=== PATIENT | female | born 1965 | race Caucasian/White ===

== ENCOUNTER 2023-11-04 14:22 | Outpatient (CLI) | payer BC, SELFPAY ==
[2023-11-04 14:47] LABS: Basophils # 0.1 K/mm3 (0-0.2); Basophils % 0.9 % (0.1-2.0); Eosinophils # 0.1 K/mm3 (0.0-0.4); Hematocrit 48.5 % (37.0-47.0); Hemoglobin 15.7 g/dL (12.2-16.2); Lymphocytes # 1.8 K/mm3 (0.7-4.5); Mean Corpuscular HGB Conc 32.5 g/dL (31.8-35.4); Mean Corpuscular Hemoglobin 29.6 pg (27.0-31.2); Mean Corpuscular Volume 91.2 fl (81-99); Mean Platelet Volume 9.5 fl (7.4-10.4); Monocytes # 0.4 K/mm3 (0.1-1.0); Monocytes % 5.6 % (1.7-9.3); Neutrophils # 5.1 K/mm3 (1.8-7.8); Neutrophils % 68.5 % (37.0-80.0); Platelet Count 243 K/mm3 (142-424); Red Blood Count 5.31 M/mm3 (4.20-5.40); Red Cell Distribution Width 14.3 % (11.5-17.5); White Blood Count 7.4 K/mm3 (4.8-10.8)
[2023-11-04 15:10] LABS: Alanine Aminotransferase 21 U/L (12-78); Albumin Level 4.4 g/dl (3.5-5.0); Albumin/Globulin Ratio 1.6 (1.1-1.8); Alkaline Phosphatase 82 U/L (38-126); Anion Gap 13.3 mEq/L (5-15); Aspartate Amino Transferase 25 U/L (14-36); Blood Urea Nitrogen 15 mg/dl (7-17); Calcium 9.8 mg/dl (8.4-10.2); Carbon Dioxide 30 mmol/L (22.0-30.0); Chloride 100 mmol/L (98-107); Chol/HDL Ratio 3.8 (1-3.5); Cholesterol 222 mg/dl (140-200); Estimated Glomerular Filt Rate 104 ml/min (>60); GFR (African American) 126 ML/MIN (>60); Globulin 2.8 g/dL (1.3-3.2); Glucose 89 mg/dl (74-100); HDL Cholesterol 59 mg/dl (40-60); Magnesium 1.7 mg/dl (1.6-2.3); Potassium 4.3 mmoL/L (3.5-5.1); Sodium 139 mmol/L (136-145); Total Protein,Serum 7.2 g/dl (6.3-8.2); Triglycerides 148 mg/dl (30-150); VLDL Cholesterol 30 mg/dL (0-40)
[2023-11-04 15:23] LABS: Direct LDL Cholesterol 121.81 mg/dL (100-129)
[2023-11-04 15:25] LABS: 25-OH Vitamin D, Total 20.1 ng/mL (30-100)
[2023-11-04 16:02] LABS: Vitamin B12 307 pg/mL (239-931)
[2023-11-04 16:38] LABS: Ferritin 116 ng/ml (11.1-264)
[2023-11-04 16:49] LABS: Thyroid Stimulating Hormone 0.54 uIU/mL (0.465-4.68)
== END 2023-11-04 23:59 | disposition home or self-care (01) ==
LOC: LAB.DROPOF 14:23
PROVIDERS: PCP Nurse Practitioner Family; Visit Provider Nurse Practitioner Family
DX: G43.909 Migraine, unspecified, not intractable, without status migrainosus (principal); I10 Essential (primary) hypertension; R31.9 Hematuria, unspecified; E55.9 Vitamin D deficiency, unspecified; Z79.899 Other long term (current) drug therapy
CPT/HCPCS: 80053; 80061; 82043; 82306; 82607; 82728; 83735; 84443; 85025

== ENCOUNTER 2024-01-13 09:24 | Outpatient (CLI) | payer BC, SELFPAY ==
--- NOTE | 2024-01-13 09:25 | MM_ITS ---
PROCEDURE INFORMATION: Exam: MG Bilateral Screening 3D Mammography Exam date and time: 01/13/2024 9:22 AM Age: 58 years old Clinical indication: Screening examination TECHNIQUE: Imaging protocol: Bilateral Screening tomosynthesis and 2D mammography including computer-aided detection (CAD) when performed. COMPARISON: 1. MG NOHEMY SCRN MAMMO W/CAD BILAT 06/19/2022 4:25 PM 2. MG NOHEMY SCRN MAMMO W/CAD BILAT 01/06/2021 4:30 PM FINDINGS: MAMMOGRAPHY: Breast composition: There are scattered areas of fibroglandular density. Mass: None. Architectural distortion: None. Calcifications: No suspicious calcifications. Asymmetric density: None. Skin thickening: None. Axillary adenopathy: None. IMPRESSION: No mammographic evidence of malignancy. Annual screening is recommended unless otherwise clinically indicated. ASSESSMENT: BI-RADS Category 1: Negative
== END 2024-01-13 23:59 | disposition home or self-care (01) ==
LOC: RAD 09:25
PROVIDERS: PCP Nurse Practitioner Family; Visit Provider Nurse Practitioner Family
DX: Z12.39 Encounter for other screening for malignant neoplasm of breast (principal)
CPT/HCPCS: 77063; 77067

== ENCOUNTER 2024-05-12 08:59 | Outpatient (CLI) | payer BC, SELFPAY ==
--- NOTE | 2024-05-12 09:03 | XR_ITS ---
FINAL REPORT CLINICAL HISTORY: Left Hip Pain COMPARISON: None FINDINGS: LEFT HIP: Two views of the left hip, with an AP view of the pelvis, demonstrate no acute fracture or dislocation. The joint spaces appear normal. The visualized bony structures are well aligned. No soft tissue abnormality is seen. IMPRESSION: No acute bony abnormality. Reviewed, Interpreted and Dictated by Cl Pittman MD Transcribed by Carolina Cornell Authenticated and [facility]
--- NOTE | 2024-05-12 09:03 | XR_ITS ---
FINAL REPORT CLINICAL HISTORY: Left Hip Pain COMPARISON: None FINDINGS: Two views of the left knee were obtained. There is no acute fracture or dislocation. The joint spaces are intact. There is no soft tissue abnormality. IMPRESSION: No acute bony abnormality. Reviewed, Interpreted and Dictated by Cl Pittman MD Transcribed by Carolina Cornell Authenticated and [facility]
== END 2024-05-12 23:59 | disposition home or self-care (01) ==
LOC: RAD 09:01
PROVIDERS: PCP Internal Medicine; Visit Provider Internal Medicine
DX: M25.552 Pain in left hip (principal); M25.562 Pain in left knee
CPT/HCPCS: 73502; 73560

== ENCOUNTER 2024-05-26 16:17 | Outpatient (CLI) | payer BC, SELFPAY ==
--- NOTE | 2024-05-26 16:18 | MR_ITS ---
PROCEDURE INFORMATION: Exam: MR Left Lower Extremity Joint Without Contrast; Hip Exam date and time: 05/26/2024 4:35 PM Age: 58 years old Clinical indication: Pain; Hip; Left; Additional info: Left hip pain TECHNIQUE: Imaging protocol: Magnetic resonance imaging of the left lower extremity joint without contrast. Exam focused on the hip. COMPARISON: CR XR HIP LT 2-3V W/PELVIS 05/12/2024 9:05 AM FINDINGS: Bones/joints: Normal bone marrow signal. No worrisome osseous lesion. No acute fracture. Labrum: Moderate chronic degeneration of the anterior superior labrum, without distinct labral tear. Mild degenerative fraying and fissuring of acetabular and femoral head cartilage. Bursae: Very minimal increased signal over the greater trochanter bursal region, without distinct fluid to suggest bursitis. TENDONS: Tendons of iliopsoas group: Unremarkable. No evidence of tear. Tendons of medial compartment of thigh: Unremarkable. No evidence of tear. Tendons of lateral rotators of hip: Unremarkable. No evidence of tear. Tendons of gluteal group: Unremarkable. No evidence of tear. Soft tissues: Unremarkable. Bladder: Imaged lower bowel and bladder are unremarkable. Small nabothian cysts of the cervix. IMPRESSION: 1. No acute osseous abnormality. 2. Jpyg-rv-ttebujso degenerative changes in the left hip including chronic degeneration of the left acetabular labrum and cartilage fissuring of the hip joint.
--- NOTE | 2024-05-26 16:18 | MR_ITS ---
PROCEDURE INFORMATION: Exam: MR Left Lower Extremity Joint Without Contrast, Knee Exam date and time: 05/26/2024 5:02 PM Age: 58 years old Clinical indication: Pain; Knee; Left; Additional info: Left hip/knee pain TECHNIQUE: Imaging protocol: Magnetic resonance imaging of the left lower extremity joint without contrast. Exam focused on the knee. COMPARISON: FINDINGS: Bones/joints: Normal bone marrow signal. No appreciable fracture. Mild cartilage fraying and fissuring in the medial aspect of the lateral compartment weight-bearing zone. Mild cartilage signal change and focal deep delamination measuring approximately 7 mm transverse in the lateral patellar midpole. No appreciable subchondral edema. Medial meniscus: Medial meniscus is unremarkable. Lateral meniscus: Horizontal tear of the lateral meniscus anterior horn, spanning anterior body, posterior body, to the posterior body/horn junction. Associated gjbxb-ag-nqqdiiaz sized parameniscal cyst in the lateral meniscal gutter measuring approximately 2.3 x 0.6 x 2.0 cm(AP x CC x TV). Focal tlot-cs-hzfxovdc inflammatory change surrounding and overlying the lateral meniscal gutter, including superficial to the distal IT band. Anterior cruciate ligament: ACL is unremarkable. Posterior cruciate ligament: PCL is unremarkable. Medial capsule and supporting structures: MCL is unremarkable. Lateral capsule and supporting structures: LCL is unremarkable. Extensor mechanism of knee: Extensor mechanism is unremarkable. Soft tissues: Unremarkable. IMPRESSION: 1. Horizontal tear of the lateral meniscus anterior horn, spanning anterior body, posterior body, to the posterior body/horn junction. Associated lbodu-xx-trfaygyp sized parameniscal cyst in the lateral meniscal gutter measuring approximately 2.3 x 0.6 x 2.0 cm(AP x CC x TV). 2. Focal qxhr-nv-miyrddnx inflammatory change surrounding and overlying the lateral meniscal gutter, including superficial to the distal IT band. 3. Mild cartilage signal change and focal deep delamination measuring approximately 7 mm transverse in the lateral patellar midpole. No appreciable subchondral edema.
== END 2024-05-26 23:59 | disposition home or self-care (01) ==
LOC: RAD 16:18
PROVIDERS: PCP Internal Medicine; Visit Provider Internal Medicine
DX: M25.552 Pain in left hip (principal); M25.562 Pain in left knee
CPT/HCPCS: 73721

== ENCOUNTER 2024-09-01 13:03 | Outpatient (CLI) | payer BC, SELFPAY ==
[2024-09-01 13:16] VITALS: BMI 37.3
--- NOTE | 2024-09-01 13:29 | ECG_ITS ---
APPROVED REPORT Exam: Resting ECG HR:101 bpm ECG Measurements Heart Rate 101 AXES MO 180 P 70 QRSd 84 QRS 17 QT 331 T 79 QTc 389 Conclusion SINUS TACHYCARDIA NONSPECIFIC T-WAVE ABNORMALITY ABNORMAL RHYTHM ECG UNCONFIRMED REPORT Electronically signed by : Kyle Smith MD 09/07/2024 08:56:03
[2024-09-01 13:39] LABS: Basophils # 0.1 K/mm3 (0-0.2); Basophils % 0.8 % (0.1-2.0); Eosinophils # 0.2 K/mm3 (0.0-0.4); Hematocrit 45.8 % (37.0-47.0); Hemoglobin 15.4 g/dL (12.2-16.2); Lymphocytes # 2.4 K/mm3 (0.7-4.5); Lymphocytes % 23.2 % (10-50); Mean Corpuscular HGB Conc 33.6 g/dL (31.8-35.4); Mean Corpuscular Hemoglobin 29.5 pg (27.0-31.2); Mean Corpuscular Volume 87.7 fl (81-99); Mean Platelet Volume 11.1 fl (7.4-10.4); Monocytes # 0.8 K/mm3 (0.1-1.0); Monocytes % 7.4 % (1.7-9.3); Neutrophils % 66.4 % (37.0-80.0); Platelet Count 253 K/mm3 (142-424); Red Blood Count 5.22 M/mm3 (4.20-5.40); Red Cell Distribution Width 13.7 % (11.5-17.5); White Blood Count 10.5 K/mm3 (4.8-10.8)
[2024-09-01 13:46] LABS: Chloride 104 mmol/L (98-107); Potassium 3.8 mmoL/L (3.5-5.1); Sodium 138 mmol/L (136-145)
[2024-09-01 13:49] LABS: Anion Gap 7.8 mEq/L (5-15); Blood Urea Nitrogen 15 mg/dl (7-17); Carbon Dioxide 30 mmol/L (22.0-30.0); Creatinine Clearance Estimated 148 mL/min (50-200); Estimated Glomerular Filt Rate 87 ml/min (>60); GFR (African American) 105 ML/MIN (>60)
[2024-09-01 13:50] LABS: Calcium 9.7 mg/dl (8.4-10.2); Glucose 87 mg/dl (74-100)
== END 2024-09-01 23:59 | disposition home or self-care (01) ==
LOC: PREOP 13:04
PROVIDERS: Nurse Anesthetist, Certified Registered; PCP Internal Medicine; Visit Provider Orthopaedic Surgery
DX: Z01.810 Encounter for preprocedural cardiovascular examination (principal); Z01.812 Encounter for preprocedural laboratory examination; R00.0 Tachycardia, unspecified; R94.31 Abnormal electrocardiogram [ECG] [EKG]
CPT/HCPCS: 80048; 85025; 93005

== ENCOUNTER 2024-10-21 09:21 | Outpatient (CLI) | payer BC, SELFPAY ==
[2024-10-21 09:27] VITALS: BMI 36.4
[2024-10-21 09:57] LABS: Basophils # 0.1 K/mm3 (0-0.2); Basophils % 1.1 % (0.1-2.0); Eosinophils # 0.3 Kmm3 (0.0-0.4); Eosinophils % 3.3 % (0.1-12.0); Hematocrit 49.6 % (37.0-47.0); Hemoglobin 16.4 g/dL (12.2-16.2); Lymphocytes % 23.2 % (10-50); Mean Corpuscular HGB Conc 33.1 g/dL (31.8-35.4); Mean Corpuscular Hemoglobin 29.4 pg (27.0-31.2); Monocytes # 0.5 K/mm3 (0.1-1.0); Neutrophils # 5.6 K/mm3 (1.8-7.8); Nucleated Red Blood Cells # 0 10^3/uL; Nucleated Red Blood Cells % 0 %; Platelet Count 242 K/mm3 (142-424); Red Blood Count 5.57 M/mm3 (4.20-5.40); Red Cell Distribution Width 13.6 % (11.5-17.5); Red Cell Distribution Width-SD 44.1 fL; White Blood Count 8.5 K/mm3 (4.8-10.8)
[2024-10-21 10:01] LABS: Anion Gap 6.1 mEq/L (5-15); Blood Urea Nitrogen 14 mg/dl (7-17); Calcium 9.3 mg/dl (8.4-10.2); Carbon Dioxide 31 mmol/L (22.0-30.0); Chloride 104 mmol/L (98-107); Creatinine Clearance Estimated 145 mL/min (50-200); Estimated Glomerular Filt Rate 87 ml/min (>60); GFR (African American) 105 ML/MIN (>60); Glucose 137 mg/dl (74-100); Potassium 4.1 mmoL/L (3.5-5.1); Sodium 137 mmol/L (136-145)
== END 2024-10-21 23:59 | disposition home or self-care (01) ==
LOC: PREOP 09:22
PROVIDERS: PCP Internal Medicine; Visit Provider Orthopaedic Surgery
DX: Z01.812 Encounter for preprocedural laboratory examination (principal)
CPT/HCPCS: 80048; 85025

== ENCOUNTER 2024-10-26 06:07 | Day surgery (SDC) | payer BC, SELFPAY ==
[2024-09-01 16:59] VITALS: BMI 37.3
[2024-10-21 13:42] VITALS: BMI 36.4
[2024-10-26] VITALS (10 sets, daily range): BP systolic 111–134; BP diastolic 67–85; PULSE 82–92; RESP 16–19; TEMP 36.2–36.7; O2SAT 93–97
[2024-10-26] MEDS: LACTATED RINGERS 1000ML 1,000 ML 100 ML IV (07:10)
--- NOTE | 2024-10-26 07:44 | P.PNANES_ITS ---
[facility] Disclaimer: The information contained in this section may have been updated after the patient was seen, as this information can be updated by other users. Medical History Seasonal allergies Migraine Miscarriage Anxiety Endometriosis Ectopic Hypertension Surgical History History of ureteroscopy History of laparoscopy History of tubal ligation Family History Mother Hypertension Brain aneurysm Social History Smoking Status: Current every day smoker tobacco type: cigarettes how long ago did patient quit smoking: smokes half pack daily alcohol intake: never substance use type: denies use current occupational status: retired Travel in the last 8 weeks?: None Have you lived/traveled outside US in past 30 days?: No Contact w/someone who lives/traveled outside US past 30 days?: No Exposure to someone with infectious disease in past 14 days?: No Do you have a fever (greater than 100.4 F or 38 C)?: No Have you tested positive for COVID-19?: No Exposed to someone with COVID-19 in past 14 days?: No Do you have a sore throat?: No Do you have a cough?: No Do you have any weakness?: No Are you experiencing any nausea/vomitting?: No Do you have any diarrhea?: No Are you experiencing any unusual bleeding?: No Do you have any muscle aches/pain?: No Do you have any abdominal pain?: No Are you experiencing loss of taste or smell?: No [facility] Anesthesia Checklist Patient Identification Patient Identification: Arm Band and Verbal (Name & ) Structural Data Admitted From: Home Planned Operative Procedure/s: Knee arthroscopy with partial lateral menisectomy Consent for Planned Operative Procedure(s) Verified: Yes Verified Documents: Surgical Consent and History and Physical NPO Status Verified Time NPO: 00:00 Additional verifications Patient : No Anesthesia Reactions: No Hx Blood Transfusions: No Blood Transfusion Reaction: No Airway Assessment Mallampati Score:: Class II Neurological Assessment Level of Consciousness: Awake, Alert and Appropriate Hx Seizures: No Anesthesia Plan Anesthesia Risk discussed: Yes Anesthesia Plan: Verified ASA Class: II Anesthesia Type: General
[2024-10-26] MEDS: BUPIVACAINE 0.25% 30ML VIAL 75 MG (07:59)
[2024-10-26] MEDS: 0.9 % SODIUM CHLORIDE 100 ML IV (07:59)
[2024-10-26] MEDS: RINGERS SOLUTION,LACTATED 6,000 ML 200 ML IR (08:00)
--- NOTE | 2024-10-26 08:27 | EXP.OP.NOTE ---
Date of procedure: 10/26/24 Pre-op Diagnosis:: Left knee lateral meniscus tear Post-op Diagnosis:: 1. Left knee complex tear posterior horn body lateral meniscus 2. Large medial engaging plica 3. Kissing lesion with meniscus tear with grade III chondromalacia lateral femoral condyle Procedure performed:: 1. Left knee arthroscopy with partial lateral meniscectomy 2. Left knee arthroscopy with extensive synovectomy and debridement of medial engaging plica Surgeon:: Thompson Beverly DO Retail Visual Merchandiser(s):: PALizeth Anesthesia: GETA Estimated blood loss (mL): 0 Operative findings:: As above see dictation Operative note:: Patient identified preoperatively. Left knee marked with yes and my initials. Transported operative suite. Placed upon operating bed. Given general anesthesia airway was secured. Left lower extremity was then prepped and draped within the knee champagne. Once prepped and draped final operative timeout performed to identify proper patient procedure and extremity. Everyone involved in the case agreed. There is no counter indications beginning. Did receive preoperative antibiotics. Marking pen was used to mallory the bony landmarks of the knee and standard portal sites. Esmarch was used to exsanguinate the extremity and pneumatic tourniquet inflated to 300 mmHg. Skin knife was then used to incise standard anterior lateral portal. Blunt with trocar was placed in the patellofemoral joint and exchanged with a camera. Swept directly into the medial joint line. Upon sweeping into the medial joint line there was a large medial inflamed engaging plica. Softened to the medial joint line and made the anterior medial portal with the help of the 18-gauge spinal needle. This was anxious which with the probe. The medial meniscus was intact the medial cartilage was pristine. There is synovitis and irritated soft tissues in the intercondylar notch which was debrided with a sucker shaver synovectomy completed ACL was seen and intact. Attention is brought to the lateral joint line. Within the lateral joint line there is a large complex tear of the posterior horn of the lateral meniscus and a subsequent kissing lesion on the lateral femoral condyle with grade III chondromalacia. He is a combination of straight biter and sucker shaver partial lateral meniscectomy was performed to obtain stable rim. Attention was then brought onto the lateral gutter back to the patellofemoral joint patella tracked midline in the trochlea patella cartilage was intact. Swept back into the medial aspect and the sucker shaver was used to debride the medial engaging plica with synovectomy. Once this was completed cameras removed the joint was drained local anesthesia infiltrated the portal sites skin closed with nylon stitch sterile dressing placed from toe to thigh patient with anesthesia taken recovery stable condition. Condition: stable Disposition: PACU Complications:: None apparent
--- NOTE | 2024-10-26 08:34 | P.PNANES_ITS ---
[facility] Anesthesia Record Part I Anesthesia Record I Intake, IV Amount: 700 Hydration: Adequate Estimated blood loss (mL): 0 Urine output (mL): 0 Blood Pressure: 123/76 SaO2: 95 Pulse Rate: 92 Airway Patency: Patent Respiratory Rate: 18 Temperature: 98 F Patient is:: Awake and Stable Stable to PACU at:: 08:39
--- NOTE | 2024-10-27 10:57 | EXP.ANES.II ---
[facility] Anesthesia Record Part II Anesthesia Record Part II Discharge Time: 09:30 Destination: Surgical Day Care (OP Surgery) PACU nurse assessment reviewed?: Yes Patient Condition:: Good Anesthesia Complications:: None Swallowing reflex intact?: Yes Airway Patency: Patent Cyanosis?: No Blood Pressure: 111/69 SaO2: 94 Respiratory Rate: 18 Pulse Rate: 82 Temperature: 98.0 F Mental Status: Alert & Oriented Pain level:: 0 Nausea and/or vomitting:: None Intake, IV Amount: 0 Hydration: Adequate
[2024-10-27 11:00] VITALS: BP 111/69; PULSE 82; RESP 18; TEMP 36.7; O2SAT 94
== END 2024-10-26 09:46 | disposition home or self-care (01) ==
PROVIDERS: PCP Internal Medicine; Visit Provider Orthopaedic Surgery
PROC: (CPT 29870; principal; 2024-10-26 07:30)
DX: M25.562 Pain in left knee (principal); S83.272A Complex tear of lateral meniscus, current injury, left knee, initial encounter; M67.52 Plica syndrome, left knee; M94.262 Chondromalacia, left knee
CPT/HCPCS: 29876; 29881; 96374; J1100; J1200; J2250; J2405; J3010; J7120

== ENCOUNTER 2025-01-26 08:12 | Outpatient (CLI) | payer BC, SELFPAY ==
--- OUTSIDE RECORDS SUMMARY | 2025-01-26 08:16 | XMS_ITS | Patient Health Record ---
Author Organization [facility], [place] Address [address] [facility] [address] [place] [address] Care Team Providers Care Kindergarten Assistant Name Role Phone Angela Edmond [facility] [phone] Allergies No Known Allergies Reason For Referral No Information Medications Medication SIG (Take, Route, Frequency, Duration) Notes Start Date End Date Status Propranolol HCl 60 MG Tablet 1 tablet Orally Once a day Active Aleve 220 MG Tablet 1 tablet with food o r milk as needed Orally every 12 hrs Active Social History Social History Sexual History: Social Info Question Answer Notes Sexual History Had sex in the past 12 months (vaginal, oral, or anal)? Yes Additional Details Category Social Info Options Details Migrated Social History Drugs/Alcohol: de nies/social Tobacco Use: former smoker Problems Problem Type SNOMED Code ICD Code Onset Dates Problem Status W/U Status Risk Notes Problem Gynecological examination abnormal ([id number]) *Senior Operator exam with abnormal finding (Code also - abnormal finding(s) (Z01.411) 2018 Active confirmed Annual with abnormal findings Problem Abnormal cervical Papanicolaou smear with positive human papillomavirus deoxyribonucleic acid test ([id number]) *Cervical low risk human papillomavirus (HPV) DNA test positive (Code also - for assoc. HPV (B97.7) (R87.820) 2017 Active confirmed Cervical low risk human papillomavirus (HPV) DNA test positive Plan Of Treatment No Information Insurance Providers Payer Name Payer Address Payer Phone Subscriber Number Group Number Insured Name Patient Relationship to Insured Coverage Start Date Coverage End Date [employer] PPO [address] [place] [address] [id number] [employer] Self - patient is the insured Medical (General) History Medical History History ICD Code Anxiety Migraine headaches Kidney stones Endometriosis Surgical History Surgery Date(Month/Year) Dx Laparoscopy 2004, Kidney stone 2013 Oral surgery
--- OUTSIDE RECORDS SUMMARY | 2025-01-26 08:17 | XMS_ITS | Clinical Summary ---
[facility] Organization [facility] Address [address] [place] [address] Care Team Providers Care Makeup Instructor Name Role Phone Giselle Harris APRN Primary Care Provider + Allergies No known active allergies Medications naproxen sodium (ALEVE) 220 MG tablet Take 220 mg by mouth 2 (two) times a day as needed for mild pain (1-3). Active Active Problems Problem Noted Date Diagnosed Date Endometriosis 03/07/2016 IUD (intrauterine device) in place 03/07/2016 Social History Tobacco Use Types Packs/Day Years Used Date Smoking Tobacco: Former Alcohol Use Standard Drinks/Week Comments No 0 (1 standard drink = 0.6 oz pur e alcohol) Abuse Screen Answer Date Recorded Unsafe at Home or Work/School Not on file Feels Threatened by Someone? Not on file 12/2022 Does Anyone Keep You from Co ntacting Others or Doint Things Outside the Home? Not on file 03/30/2023 Physical Sign of Abuse Present Not on file 1 Housing Stability Answer Date Recorded Current Living Arrangements Not on file 12/2022 Potentially Unsafe Housing Conditions Not on edwina e 03/30/2023 Family and Community Support Answer Venu e Recorded Help with Day-to-Day Activities Not on file 03/30/2023 Lonely or Isolated Not on file 03/30/2023 Employment Answer Date Recorded Do you want help finding or keeping work or a obie b? Not on file 03/30/2023 Disabilities Answer Date Recorded Concentrating, Remembering, or Making Decisions Difficulty Not on file 03/30/2023 Doing Errands Independently Difficulty Not on fi le 03/30/2023 Education Answer Date Recorded Help with school or training? Not on file Preferred Language Not on file 03/30/2023 Comments Unknown Sex and Gender Information Value Date Recorded Sex Assigned at Not on file Legal Sex Female 12:44 PM EDT Gender Identity Not on file Sexual Orientation Not on file Last Filed Vital Signs Vital Sign Reading Time Taken Comments Blood Pressure 116/70 03/07/2016 2:30 PM EDT Pulse - - Temperature - - Respiratory Rate - - Oxygen Saturation - - Inhaled Oxygen Concentration - - Weight 88.5 kg (195 lb) 03/07/2016 2:30 PM EDT Height 167 cm (5' 5.75 ) 03/07/2016 2:30 PM EDT Body Mass Index 31.71 03/07/2016 2:30 PM EDT Plan of Treatment Health Maintenance Due Date Last Done Comments Annual Gynecologic Pelvic an d Breast Exam 1965 MAMMOGRAM 2007 COLOGUARD 12/30/2012 COLON CANCER SCREENING 5 YEA R SIGMOIDOSCOPY 12/30/2012 COLONOSCOPY 12/30/2012 COLORECTAL CANCER SCREENING 12/30/2012 CT COLONOGRAPHY 12/30/2012 FECAL OCCULT BLOOD TEST 12/30/2012 FIT Testing (1 year) 12/30/2012 ANNUAL PHYSICAL 03/07/2016 HEPATITIS C SCREENING 03/07/2016 Pneumococcal Vaccine 50+ (2 of 2 - PCV) 12/18/2018 12/18/2017 ZOSTER VACCINE (2 of 2) 10/04/2021 08/09/2021 COVID-19 Vaccine (2 - season) 2024 INFLUENZA VACCINE 03/24/2025 03/26/2023, , 03/30/2014 TDAP/TD VACCINES (3 - Td or Tdap) 11/21/2027 018, 04/02/2017 Insurance * Guarantor: [employer] Account Type Relation to Patient Date of Phone Billing Address Personal/Family Self 1965 [address] [place] [facility] [address] PPO Care Teams Makeup Instructor Relationship Specialty Start Date End Date Giselle Harris APRN [address] [place] [address] PCP - General Nurse Practitioner 03/26/23
--- OUTSIDE RECORDS SUMMARY | 2025-01-26 08:17 | XMS_ITS | Clinical Summary ---
Author Organization Healthcare Address [address] [place] [address] Care Team Providers Care Scuba Diving Teacher Name Role Phone Unavailable Primary Care Provider Unavailabl e Immunizations Immunization Administration Dates Next Due Influenza, Injectable, MDCK, trivalent, PF 04/02 Influenza, seasonal, injectable 03/30/2014 Tdap 04/02/2017 Social History Tobacco Use Types Packs/Day Years Used Date Smoking Tobacco: Every Day Alcohol Use Standard Drinks/Week Comments Yes 0 (1 standard drink = 0.6 oz pur e alcohol) Comments Unknown Sex and Gender Information Value Date Recorded Sex Assigned at Not on file Legal Sex Female 6:19 PM EDT Gender Identity Not on file Sexual Orientation Not on file Last Filed Vital Signs Vital Sign Reading Time Taken Comments Blood Pressure - - Pulse - - Temperature - - Respiratory Rate - - Oxygen Saturation - - Inhaled Oxygen Concentration - - Weight 86.8 kg (191 lb 6.1 oz) 01/27/2016 3:43 P M EDT Height 170.2 cm (5' 7 ) 01/27/2016 3:43 PM EDT Body Mass Index 29.97 01/27/2016 3:43 PM EDT Plan of Treatment Health Maintenance Due Date Last Done Comments [facility]-Depression Screening 1965 [facility]-/Child/Adol SDOH Screenings 01/01/1968 [facility]- SDOH Screenings 12/30/1985 [facility]-Adult SDOH Screenings 12/30/1985 [facility]-Hepatitis B Vaccines (1 of 3 - 19+ 3-dose series) 12/30/1986 CT Colonography 12/30/2012 Colonoscopy 12/30/2012 FIT-DNA 12/30/2012 FIT 12/30/2012 FOBT 12/30/2012 Sigmoidoscopy 12/30/2012 [facility]-Colorectal Cancer Screening 12/30/2012 [facility]-Pneumococcal Vaccine: 50 + Years (1 of 1 - PCV) 12/30/2017 [facility]-Zoster Vaccines (1 of 2) 12/30/2017 [facility]-Pap Smear 01/04/2019 01/05/2016 [facility]-Cervical Cancer Screening 01/04/2021 [facility]-HPV/Cotest 01/04/2021 01/05/2016 [id number] Vaccine (1 - season) 2024 [facility]-Influenza Vaccine (#1) 02/22/202504/02, 03/30/2014 [facility]-DTaP,Tdap,and Td Vaccine s (2 - Td or Tdap) 04/02/2027 04/02/2017 HPV Vaccines Aged Out No longer eligi ble based on patient's age to complete this topic [facility]-HIB Vaccines Aged Out No longer e ligible based on patient's age to complete this topic [facility]-Hepatitis A Vaccines Aged Out No longer eligible based on patient's age to complete this topic [facility]-IPV Vaccines Aged Out No longer e ligible based on patient's age to complete this topic [facility]-Rotavirus Vaccines Aged Out No lo nger eligible based on patient's age to complete this topic Procedures Procedure Name Priority Date/Time Associated Diagnosis Comments CYTO DATA CONVERSION Routine 01/05/2016 12:00 AM EDT from Last 3 Months or Most Recently Relevant to Health Maintenance Results * Cytology (01/05/2016 12:00 AM EDT) 01/05/2016 01/06/2016 12: 08 PM EDT Narrative [facility] - 01/13/2016 11:22 AM EDT [facility] MR #: [id number] [facility] [address] [place], [place] [address] 1965 (Age: 50) FW Collect Date: 01/05/2016 00:00 Receipt Date: 01/06/2016 12:08 Page 1 DEPARTMENT OF PATHOLOGY AND LABORATORY MEDICINE CYTOPATHOLOGY REPORT Email: [email or web address] [phone] ATTENDING MD/Practitioner: Lupillo Villarreal APRN Service: [facility] Location: [facility] Reported: 01/13/2016 11:22 Collected: 01/05/2016 00:00 INTERPRETATION A. THIN PREP (CERVICAL/VAGINAL): NEGATIVE FOR INTRAEPITHELIAL LESION OR MALIGNANCY. SHIFT IN ALEX SUGGESTIVE OF BACTERIAL VAGINOSIS. SATISFACTORY FOR EVALUATION; ENDOCERVICAL/TRANSFORMATION ZONE COMPONENT ABSENT/INSUFFICIENT. Slide scanned and imaged by [employer] Imaging System with manual review of all selected archuleta. Electronically Signed Out By TANYA Wayne (ASC) TANYA Vivas (ASC) TANYA Wayne (ASC) Cervical cytology is a screening test primarily for squamous cancers and precursors and has associated false negative and positive results. New technologies such as liquid based sampling may decrease but will not eliminate all false negative results. Regular screening and follow-up of unexplained clinical signs and symptoms are recommended to minimize false negative results. Please see the ASCCP website (www.asccp.org) for followup recommendations. If HPV testing was requested, correlation with the results is suggested (please call Microbiology at [phone] for results). CLINICAL INFORMATION: Menstrual History: Acyclic Date of Last Menstrual Period: Unknown Contraceptive History: Intrauterine device Other Clinical Conditions: Other FLOOR ASSEMBLER symptoms: Low abd pain If ASCUS and > 24 years of age, HPV/DNA testing requested. SPECIMEN DESCRIPTION: A: THIN PREP (CERVICAL/VAGINAL) THIN PREP PROCESS CELLULAR ENHANCEMENT ICD: F: A; DX IMAGE 42743 SNOMED CODES: A; [id number] In cases where a pathologist has signed out the report, the service has been rendered in part by a resident. The signing pathologist has performed and is responsible for the reported pathologic evaluation. us Rossana Villarreal APRN LAB PATHOLOGY ORDERABLES Fi nal Result [employer] from Last 3 Months or Most Recently Relevant to Health Maintenance
--- NOTE | 2025-01-26 08:30 | MR_ITS ---
FINAL REPORT CLINICAL HISTORY: Severe knee pain, concern for torn menicus medial sided knee pain x 2 months COMPARISON: None FINDINGS: Multi planar MR imaging was performed of the right knee. The anterior and posterior cruciate ligaments are intact. The quadriceps and patellar tendons are intact. Large tear posterior horn lateral meniscus, best seen on coronal images 18 and 19 of series 8. Medial meniscus intact. The medial and lateral collateral ligaments appear intact. The medial and lateral retinacula appear intact. There is no evidence of bone marrow edema or osteochondral defect. Small joint effusion. IMPRESSION: Large tear posterior horn lateral meniscus. Reviewed, Interpreted and Dictated by Cl Pittman MD Transcribed by Carolina Cornell Authenticated and . [facility]
== END 2025-01-26 23:59 | disposition home or self-care (01) ==
LOC: RAD 08:13
PROVIDERS: PCP Internal Medicine; Visit Provider Internal Medicine
DX: S83.281A Other tear of lateral meniscus, current injury, right knee, initial encounter (principal)
CPT/HCPCS: 73721

== ENCOUNTER 2025-03-05 09:28 | Outpatient (CLI) | payer BC, SELFPAY ==
[2025-03-05 08:44] VITALS: BMI 35.6
--- OUTSIDE RECORDS SUMMARY | 2025-03-05 09:31 | XMS_ITS | Patient Health Record ---
Author Organization [facility] Address [address] [place] [address] Care Team Providers Care Gore Stitcher Name Role Phone Angela Edmond [facility] [phone] Allergies No Known Allergies Reason For Referral [...] Status Risk Notes Problem Gynecological examination abnormal ([id number]) *[employer] exam with abnormal finding (Code also - abnormal finding(s) (Z01.411) 2018 Active confirmed Annual with abnormal findings Problem Abnormal cervical Papanicolaou smear with positive human papillomavirus deoxyribonucleic acid test ([id number]) *Cervical low risk human papillomavirus (HPV) DNA test positive (Code also - for assoc. HPV (B97.7) (R87.820) 2017 Active confirmed Cervical low risk human papillomavirus (HPV) DNA test positive Plan Of Treatment No Information Insurance Providers Payer Name Payer Address Payer Phone Subscriber Number Group Number Insured Name Patient Relationship to Insured Coverage Start Date Coverage End Date Florian PPO [address] [place] [address] [id number] [place] Self - patient is the insured Medical (General) History Medical History History ICD Code Anxiety Migraine headaches Kidney stones Endometriosis Surgical History Surgery Date(Month/Year) Oral surgery Dx Laparoscopy 2004, Kidney stone 2013
--- OUTSIDE RECORDS SUMMARY | 2025-03-05 09:31 | XMS_ITS | Clinical Summary ---
Author Organization Healthcare Address [address] [place] [address] Care Team Providers Care Circuit Walker Name Role Phone Unavailable Primary Care Provider [...] [facility]-Cervical Cancer Screening 01/04/2021 [facility]-HPV/Cotest 01/04/2021 01/05/2016 [id number] Vaccine (1 - season) 2025 [facility]-Influenza Vaccine (#1) 02/22/202504/02, 03/30/2014 [facility]-DTaP,Tdap,and Td [...] Narrative SUNQUEST - 01/13/2016 11:22 AM EDT [facility] MR #: [id number] [facility] [address], [place] [address] 1965 (Age: 50) FW Collect Date: 01/05/2016 00:00 Receipt Date: 01/06/2016 12:08 Page 1 DEPARTMENT OF PATHOLOGY AND LABORATORY MEDICINE CYTOPATHOLOGY REPORT Email: [email or web address] [phone] ATTENDING MD/Practitioner: Lupillo Villarreal APRN Service: [facility] Location: [facility] Reported: 01/13/2016 11:22 Collected: 01/05/2016 00:00 INTERPRETATION A. THIN PREP (CERVICAL/VAGINAL): NEGATIVE FOR INTRAEPITHELIAL LESION OR MALIGNANCY. SHIFT IN ALEX SUGGESTIVE OF BACTERIAL VAGINOSIS. SATISFACTORY FOR EVALUATION; ENDOCERVICAL/TRANSFORMATION ZONE COMPONENT ABSENT/INSUFFICIENT. Slide scanned and imaged by [employer] ThinPrep Imaging System with manual review of [...] results is suggested (please call Microbiology at [phone] for results). 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 SPECIMEN DESCRIPTION: A: THIN PREP (CERVICAL/VAGINAL) THIN PREP PROCESS CELLULAR ENHANCEMENT ICD: F: A; DX IMAGE [id number] SNOMED CODES: A; [id number] In cases where a pathologist has signed out the report, the service has been rendered in part by a resident. The signing pathologist has performed and is responsible for the reported pathologic evaluation. us Rossana Villarreal APRN LAB PATHOLOGY ORDERABLES Fi nal Result SUNMygeni from Last 3 Months or Most Recently Relevant to Health Maintenance
--- OUTSIDE RECORDS SUMMARY | 2025-03-05 09:31 | XMS_ITS | Clinical Summary ---
Author Organization [facility] Address [address] [place] [address] Care Team Providers Care Clothespin Drier Operator Name Role Phone Giselle Harris APRN Primary [...] 10/04/2021 08/09/2021 COVID-19 Vaccine (2 - season) 2025 INFLUENZA VACCINE 03/24/2025 03/26/2023, , 03/30/2014 TDAP/TD VACCINES (3 - Td or Tdap) 11/21/2027 018, 04/02/2017 Insurance Care Teams Clothespin Drier Operator Relationship Specialty Start Date End Date Giselle Harris APRN [address] [place] [address] PCP - General Nurse Practitioner 03/26/23
--- NOTE | 2025-03-05 09:48 | ECG_ITS ---
APPROVED REPORT Exam: Resting ECG HR:87 bpm ECG Measurements Heart Rate [address] 185 P 65 QRSd 87 QRS 40 QT 346 T 66 QTc 390 Conclusion SINUS RHYTHM NORMAL ECG UNCONFIRMED REPORT Electronically signed by : Kyle Smith MD 03/06/2025 08:54:58
[2025-03-05 10:00] LABS: Hematocrit 47.1 % (37.0-47.0); Hemoglobin 15.5 g/dL (12.2-16.2); Immature Granulocytes % 0.3 %; Mean Corpuscular HGB Conc 32.9 g/dL (31.8-35.4); Mean Corpuscular Hemoglobin 29.1 pg (27.0-31.2); Mean Corpuscular Volume 88.4 fl (81-99); Nucleated Red Blood Cells % 0 %; Platelet Count 236 K/mm3 (142-424); Red Blood Count 5.33 M/mm3 (4.20-5.40); Red Cell Distribution Width-SD 44.8 fL; White Blood Count 7.2 K/mm3 (4.8-10.8)
[2025-03-05 10:16] LABS: Anion Gap 9.8 mEq/L (5-15); Blood Urea Nitrogen 15 mg/dl (7-17); Calcium 9.5 mg/dl (8.4-10.2); Carbon Dioxide 31 mmol/L (22.0-30.0); Chloride 102 mmol/L (98-107); Creatinine Clearance Estimated 140 mL/min (50-200); Creatinine,Serum 0.70 mg/dl (0.52-1.04); Estimated Glomerular Filt Rate 86 ml/min (>60); GFR (African American) 104 ML/MIN (>60); Glucose 108 mg/dl (74-100); Potassium 3.8 mmoL/L (3.5-5.1); Sodium 139 mmol/L (136-145)
== END 2025-03-05 23:59 | disposition home or self-care (01) ==
LOC: PREOP 09:28
PROVIDERS: PCP Internal Medicine; Visit Provider Orthopaedic Surgery
DX: Z01.810 Encounter for preprocedural cardiovascular examination (principal); Z01.812 Encounter for preprocedural laboratory examination
CPT/HCPCS: 80048; 85025; 93005

== ENCOUNTER 2025-03-09 08:22 | Day surgery (SDC) | payer BC, SELFPAY ==
[2025-03-05 10:33] VITALS: BMI 36.9
[2025-03-09] VITALS (10 sets, daily range): BP systolic 114–138; BP diastolic 57–82; PULSE 74–97; RESP 14–20; TEMP 36.1–38; O2SAT 92–96
--- NOTE | 2025-03-09 09:16 | P.PNANES_ITS ---
[facility] Disclaimer: The information contained in this section may have been updated after the patient was seen, as this information can be updated by other users. Medical History Seasonal allergies Migraine Miscarriage Anxiety Endometriosis Ectopic Hypertension Surgical History (Updated 03/05/25 @ 09:36 by Sal Holbrook RN) History of knee surgery History of ureteroscopy History of laparoscopy History of tubal ligation Family History Mother Hypertension Brain aneurysm Social History (Updated 03/05/25 @ 09:37 by Sal Holbrook RN) Smoking Status: Current every day smoker tobacco type: cigarettes how long ago did patient quit smoking: smokes half pack daily alcohol intake: never substance use type: denies use current occupational status: retired Travel in the last 8 weeks?: None Have you lived/traveled outside US in past 30 days?: No Contact w/someone who lives/traveled outside US past 30 days?: No Exposure to someone with infectious disease in past 14 days?: No Do you have a fever (greater than 100.4 F or 38 C)?: No Have you tested positive for COVID-19?: No Exposed to someone with COVID-19 in past 14 days?: No Do you have a sore throat?: No Do you have a cough?: No Do you have any weakness?: No Do you have any diarrhea?: No Are you experiencing any unusual bleeding?: No Do you have any muscle aches/pain?: No Do you have any abdominal pain?: No Are you experiencing loss of taste or smell?: No [facility] Anesthesia Checklist Patient Identification Patient Identification: Verbal (Name & ) Structural Data Admitted From: Home Planned Operative Procedure/s: r knee arthro Consent for Planned Operative Procedure(s) Verified: Yes NPO Status Verified Time NPO: 00:00 Additional verifications Anesthesia Reactions: No Hx Blood Transfusions: No Blood Transfusion Reaction: No Airway Assessment Mallampati Score:: Class II C-Spine Mobility Assessed: Yes TMJ Mobility Assessed: Yes Dentition: Dentures-good fit Neurological Assessment Level of Consciousness: Awake, Alert and Appropriate Anesthesia Plan Anesthesia Risk discussed: Yes Anesthesia Plan: Verified ASA Class: II Anesthesia Type: General
[2025-03-09] MEDS: BUPIVACAINE 0.25% 30ML VIAL (11:02)
[2025-03-09] MEDS: SODIUM CHLORIDE IRRIG SOLUTION 6,000 ML 500 ML IR (11:03)
--- NOTE | 2025-03-09 11:29 | P.PNANES_ITS ---
[facility] Anesthesia Record Part I Anesthesia Record I Intake, IV Amount: 500 Hydration: Adequate Estimated blood loss (mL): 0 Urine output (mL): 0 Blood Products used (#): none Blood Pressure: 117/67 SaO2: 95 Pulse Rate: 97 Airway Patency: Patent Respiratory Rate: 14 Temperature: 97.0 F Patient is:: Drowsy, Nasal O2 and Stable Stable to PACU at:: 11:26
--- NOTE | 2025-03-09 11:31 | P.OP_ITS ---
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 Right knee marked with yes my initials. Transported operative suite. Placed upon operating bed. General anesthesia administered airway secured. Right lower extremity prepped and draped within the knee champagne. Once prepped and draped final operative timeout performed to identify proper patient procedure and extremity. Everyone involved the case agree. There is no counter indication beginning. Did receive preoperative antibiotics. Marking pen was used to mallory bony landmarks in the standard portal sites. Esmarch was used to exsanguinate the extremity pneumatic tourniquet inflated to 300 mmHg. Skin knife was used to incise standard anterior lateral portal. Blunt with trocar was placed in patellofemoral joint exchange with a camera. I swept directly into the medial joint line where the anterior medial portal was made. Exchanged with a probe. In the medial joint line the medial cartilage was mildly softened but intact and the medial meniscus was intact. Intercondylar notch showed the ACL to be intact. Attention was then brought to the lateral joint line with the lateral joint line there is a large complex tear of the body of the lateral meniscus using a combination of straight biter sucker shaver partial lateral meniscectomies back performed back to [facility]. There was an area corresponding directly with the meniscus tear that caused full- thickness cartilage lesion on the lateral femoral condyle there was some subsequent grade III chondromalacia adjacent to this with some loose arjun cartilage wear sucker shaver was used to remove the loose arjun cartilage. Attention is brought to the medial and lateral gutters back in the patellofemoral joint patella did track midline in the trochlea there was some irritated tissue synovitis in the patellofemoral joint. Cameras removed the joint was drained local anesthesia infiltrated the portal sites skin closed with nylon stitch sterile dressing placed from toe to thigh patient waken anesthesia taken recovery in stable condition. Condition: stable Disposition: PACU Complications:: None apparent
[2025-03-09] MEDS: KETOROLAC 30MG/ML VIAL 30 MG IV (11:40)
--- NOTE | 2025-03-10 10:11 | P.PNANES_ITS ---
[facility] Anesthesia Record Part II Anesthesia Record Part II Discharge Time: 11:56 Destination: Surgical Day Care (OP Surgery) PACU nurse assessment reviewed?: Yes Patient Condition:: Good Anesthesia Complications:: None Swallowing reflex intact?: Yes Airway Patency: Patent Cyanosis?: No Blood Pressure: 117/81 SaO2: 94 Respiratory Rate: 18 Pulse Rate: 74 Temperature: 97 F Mental Status: Alert & Oriented Pain level:: 3 Nausea and/or vomitting:: None Intake, IV Amount: 0 Hydration: Adequate
[2025-03-10 10:12] VITALS: BP 117/81; PULSE 74; RESP 18; TEMP 36.1; O2SAT 94
== END 2025-03-09 12:40 | disposition home or self-care (01) ==
PROVIDERS: PCP Internal Medicine; Visit Provider Orthopaedic Surgery
PROC: (CPT 29870; principal; 2025-03-09 10:00)
DX: S83.281A Other tear of lateral meniscus, current injury, right knee, initial encounter (principal); X58.XXXA Exposure to other specified factors, initial encounter; M94.261 Chondromalacia, right knee; F41.9 Anxiety disorder, unspecified; F17.210 Nicotine dependence, cigarettes, uncomplicated; Z79.899 Other long term (current) drug therapy
CPT/HCPCS: 29881; J0665; J0690; J1100; J1885; J2003; J2250; J2704; J3010

== ENCOUNTER 2025-05-01 07:15 | Observation (INO) | payer BC, SELFPAY ==
[2025-05-01] VITALS (19 sets, daily range): BP systolic 103–135; BP diastolic 49–83; PULSE 78–114; RESP 10–16; TEMP 36.6–36.8; O2SAT 85–98; BMI 35.9; BMI 36.1
--- NOTE | 2025-05-01 07:14 | ECG_ITS ---
APPROVED REPORT Exam: Resting ECG HR:119 bpm ECG Measurements Heart Rate 119 AXES MT 175 P 76 QRSd 85 QRS 48 QT 422 T 79 QTc 493 Conclusion SINUS TACHYCARDIA POSSIBLE RIGHT ATRIAL ENLARGEMENT [0.25mV P-WAVE] MODERATE T-WAVE ABNORMALITY, CONSIDER LATERAL ISCHEMIA [-0.1+ mV T-WAVE IN I/aVL/V5/V6] ABNORMAL ECG UNCONFIRMED REPORT Electronically signed by : PREETI RADER, 05/02/2025 02:18:26
--- NOTE | 2025-05-01 07:16 | CT_ITS ---
PROCEDURE INFORMATION: Exam: CTA Chest With Contrast Exam date and time: 05/01/2025 7:35 AM Age: 59 years old Clinical indication: Pain; Chest pressure; Additional info: Cp to back x 1 week but is getting worse, tachy TECHNIQUE: Imaging protocol: Computed tomographic angiography of the chest with contrast. Exam focused on the arteries. 3D rendering (Not supervised by radiologist): MIP and/or 3D reconstructed images were created by the technologist. Radiation optimization: All CT scans at this facility use at least one of these dose optimization techniques: automated exposure control; mA and/or kV adjustment per patient size (includes targeted exams where dose is matched to clinical indication); or iterative reconstruction. Contrast material: ISOVUE 370; Contrast volume: 80 ml; Contrast route: INTRAVENOUS (IV); COMPARISON: No relevant prior studies available. FINDINGS: Pulmonary arteries: No PE. No evidence of cardiac strain. Aorta: Unremarkable. No aortic aneurysm. No aortic dissection. Lungs: The lungs are clear. Pleural spaces: Unremarkable. No pneumothorax. No pleural effusion. Heart: Normal heart size. No pericardial fluid. No significant coronary vessel atherosclerosis. Lymph nodes: Few small subcentimeter mediastinal and bilateral hilar lymph nodes are present, likely reactive. Liver: Too small to characterize round hypodensity at the left hepatic dome measuring 5 x 7 mm axial statistically represents simple cyst. Bones/joints: 1.5 x 1.4 cm round lesion in L1 vertebral body has the appearance of a vertebral body hemangioma. Soft tissues: Unremarkable. IMPRESSION: 1. No PE. No evidence of cardiac strain. 2. Normal heart size. No pericardial fluid. No significant coronary vessel atherosclerosis. 3. The lungs are clear.
--- NOTE | 2025-05-01 07:18 | HMH.EDCP ---
Discharge Plan Disposition Chief Complaint: Chest Pain Prescriptions Prescriptions: No Action albuterol sulfate 90 mcg/actuation HFA aerosol inhaler 2 puff inhalation Q4-6H PRN (Reason: shortness of breath or wheezing) Qty: 8.5 2RF irbesartan-hydrochlorothiazide 150-12.5 mg tablet 1 tab PO QAM 90 Days Qty: 90 3RF naproxen sodium [Aleve] 220 mg Capsule 220 mg PO BID PRN (Reason: Headache) Referrals Follow up/Referrals: Corey Tsai DO [Primary Care Provider, Family Practice] - See instructions Print Language Print Language: [place] Discharge ED Provider: Benjamin Fields HPI General Chief Complaint: Chest Pain Stated Complaint: Chest Pain Time Seen by Provider: 05/01/25 07:16 History of Present Illness HPI narrative: Patient is a 59-year-old female with past medical history of anxiety, hypertension, chronic smoking presents emergency department for evaluation of chest pain. Onset was acute occurring 7 days ago, not particularly modifiable, moderate to severe in intensity and is getting worse, radiates through to the back. No cough vomiting or abdominal pain no previous cardiac history no other acute complaints at this time. Please note that above description of symptoms, in this electronic medical record under categorization of recalled from ER triage doctor by RN are reflective of an initial nursing assessment, however, is not reflective of my full history and physical exam that was personally taken and clarified. Consequentially, this preceding description of symptoms, which may include the patient's categorized chief complaint in the EMR, do not reflect my personal clinical impression, and the ultimate description of history of present illness and patient stated complaints should be deferred to this section of the note. Unless stated otherwise or congruent with this section of the note, additional signs, symptoms, or incongruence should be interpreted as inaccurate with my clinical impression. Related Data Home Medications ?Medication ?Instructions ?Recorded ?Confirmed naproxen sodium 220 mg capsule 220 mg PO BID PRN Headache 10/21/24 05/01/25 (Aleve) Previous Rx's ?Medication ?Instructions ?Recorded albuterol sulfate 90 mcg/actuation 2 puff inhalation Q4-6H PRN 01/13/25 aerosol inhaler shortness of breath or wheezing #8.5 grams irbesartan 150 1 tab PO QAM 90 days #90 tabs 03/04/25 mg-hydrochlorothiazide 12.5 mg tablet Allergies Allergy/AdvReac Type Severity Reaction Status Date / Time No Known Allergies Allergy Verified 04/19/25 11:19 [facility] Disclaimer: The information contained in this section may have been updated after the patient was seen, as this information can be updated by other users. Medical History Seasonal allergies Migraine Miscarriage Pt reported multiple Anxiety Endometriosis Ectopic Hypertension Surgical History History of knee surgery History of ureteroscopy History of laparoscopy History of tubal ligation Family History Mother Hypertension Brain aneurysm Social History Smoking Status: Current every day smoker tobacco type: cigarettes how long ago did patient quit smoking: smokes half pack daily alcohol intake: never substance use type: denies use current occupational status: retired Travel in the last 8 weeks?: None Have you lived/traveled outside US in past 30 days?: No Contact w/someone who lives/traveled outside US past 30 days?: No Exposure to someone with infectious disease in past 14 days?: No Do you have a fever (greater than 100.4 F or 38 C)?: No Have you tested positive for COVID-19?: No Exposed to someone with COVID-19 in past 14 days?: No Do you have a sore throat?: No Do you have a cough?: No Do you have any weakness?: No Do you have any diarrhea?: No Are you experiencing any unusual bleeding?: No Do you have any muscle aches/pain?: No Do you have any abdominal pain?: No Are you experiencing loss of taste or smell?: No Other Medical History Have you received the Pneumonia Vaccine: No ROS Obtained: Yes Systems reviewed as appropriate & no additional complaints except as documented Physical Exam General General appearance: alert and in no apparent distress Head Head exam: atraumatic and normocephalic Eye Eye exam: Present PERRL and EOMI ENT ENT exam: Present mucous membranes moist Neck Neck exam: Present normal inspection Chest Chest inspection: Present normal inspection and symmetric chest wall rise Respiratory Respiratory exam: Present normal lung sounds bilaterally; Absent respiratory distress Cardiovascular Cardiovascular exam: Present normal rhythm and tachycardia Abdominal Exam Abdominal exam: Present soft; Absent tenderness Extremities Exam Extremities exam: Present normal inspection Neurological Exam Neurological exam: Present alert and CN II-XII intact Psychiatric Psychiatric exam: Present normal affect Skin Skin exam: Present warm and dry HEART Score HEART Score HEART Score assessment performed?: Yes History (anamnesis): Highly suspicious ECG: Non-specific disturbance Age: 45-65 years Risk factors: 1-2 risk factors Troponin: </= normal limit HEART Score: 5 Critical Care Critical Care Time Critical Care Time: No Medical Decision Making Colby Inquiry Pt receiving controlled substance: No Vital Signs Vital Signs: 05/01/25 07:15 05/01/25 07:20 05/01/25 07:30 Temperature 98.3 F Temperature Source Oral Pulse Rate 114 H 107 H Pulse Rate [Left Radial] 106 H Respiratory Rate 15 10 L 14 Blood Pressure 116/75 113/71 Blood Pressure [Right Arm] 123/83 Blood Pressure Mean [Right Arm] 96 02 Sat by Pulse Oximetry 95 94 L 98 Oxygen Delivery Method Room Air Nasal Cannula Nasal Cannula Oxygen Flow Rate (LPM) 2 2 05/01/25 07:48 05/01/25 08:00 05/01/25 08:30 Temperature Temperature Source Pulse Rate 101 H 93 H 85 Pulse Rate [Left Radial] Respiratory Rate 16 13 10 L Blood Pressure 135/75 113/78 128/74 Blood Pressure [Right Arm] Blood Pressure Mean [Right Arm] 02 Sat by Pulse Oximetry 95 95 95 Oxygen Delivery Method Nasal Cannula Nasal Cannula Nasal Cannula Oxygen Flow Rate (LPM) 2 2 2 05/01/25 09:00 05/01/25 09:30 05/01/25 10:00 Temperature Temperature Source Pulse Rate 81 80 89 Pulse Rate [Left Radial] Respiratory Rate 14 14 Blood Pressure 110/73 110/63 113/80 Blood Pressure [Right Arm] Blood Pressure Mean [Right Arm] 02 Sat by Pulse Oximetry 94 L 94 L 91 L Oxygen Delivery Method Nasal Cannula Nasal Cannula Room Air Oxygen Flow Rate (LPM) 2 2 05/01/25 10:30 05/01/25 11:00 05/01/25 11:30 Temperature Temperature Source Pulse Rate 78 78 89 Pulse Rate [Left Radial] Respiratory Rate Blood Pressure 114/69 109/61 L 111/72 Blood Pressure [Right Arm] Blood Pressure Mean [Right Arm] 02 Sat by Pulse Oximetry 95 95 88 L Oxygen Delivery Method Room Air Room Air Room Air Oxygen Flow Rate (LPM) 05/01/25 12:00 Temperature Temperature Source Pulse Rate 89 Pulse Rate [Left Radial] Respiratory Rate Blood Pressure 103/64 L Blood Pressure [Right Arm] Blood Pressure Mean [Right Arm] 02 Sat by Pulse Oximetry 85 L Oxygen Delivery Method Room Air Oxygen Flow Rate (LPM) Lab Data Labs: Lab Results 05/01/25 07:19: WBC 8.9, RBC 5.56 H, Hgb 16.4 H, Hct 49.2 H, MCV 88.5, MCH 29.5, MCHC 33.3, RDW 13.7, Plt Count 269, MPV 10.8 H, Neut % (Auto) 56.4, Lymph % (Auto) 31.0, [place] % (Auto) 7.6, Eos % (Auto) 3.7, Baso % (Auto) 1.1, Neut # (Auto) 5.0, Lymph # (Auto) 2.8, [place]ham # (Auto) 0.7, Eos # (Auto) 0.3, Baso # (Auto) 0.1, Sodium 136, Potassium 3.4 L, Chloride 98, Carbon Dioxide 32 H, Anion Gap 9.4, BUN 19 H, Creatinine 0.80, Estimated Creat Clear 124, Estimated GFR 74, Est GFR ( Amer) 89, Glucose 142 H, Calcium 9.9, Total Bilirubin 0.8, AST 21, ALT 19, Alkaline Phosphatase 77, Troponin I < 0.01, Total Protein 7.8, Albumin 4.4, Globulin 3.4 H, Albumin/Globulin Ratio 1.3, Lipase 116, TSH 1.21, Free T4 1.30, HCV Ab TEE w/Rflx PCR Qn Negative, HIV Ag/Ab Combo Qual Negative 05/01/25 10:55: Troponin I < 0.01 05/01/25 07:19 05/01/25 07:19 Response Orders (Tests/Meds): ED MEDICATIONS Generic Name Dose Route Start Last Admin Trade Name Freq PRN Reason Stop Dose Admin Sodium Chloride 10 ml 05/01/25 07:43 05/01/25 07:44 Sodium Chloride 0.9% 10ml Syr (Rad Only) IV 05/31/25 07:42 10 ml NEEDED PRN Administration Maintain IV Site Discontinued Medications Generic Name Dose Route Start Last Admin Trade Name Vane PRN Reason Stop Dose Admin Acetaminophen 1,000 mg 05/01/25 07:56 05/01/25 07:57 Acetaminophen 1,000mg/100ml Vial IV 05/01/25 07:57 1,000 mg ONCE ONE Administration Aspirin 324 mg 05/01/25 07:16 05/01/25 07:48 Aspirin 81mg Chewable Tablet PO 05/01/25 07:17 324 mg ONCE ONE Administration Iopamidol 80 ml 05/01/25 07:43 05/01/25 07:44 Iopamidol-370 (76%);100ml Bottle IV 05/01/25 07:44 80 ml ONCE ONE Administration Ketorolac Tromethamine 15 mg 05/01/25 07:56 05/01/25 07:57 Ketorolac 15mg/Ml Vial IV 05/01/25 07:57 15 mg ONCE ONE Administration Morphine Sulfate 4 mg 05/01/25 07:16 05/01/25 07:53 Morphine 4mg/Ml Syringe IV 05/01/25 07:17 Not Given ONCE ONE Ondansetron HCl 4 mg 05/01/25 07:16 05/01/25 07:53 Ondansetron 4mg/2ml Vial IV 05/01/25 07:17 4 mg ONCE ONE Administration Sodium Chloride 50 ml 05/01/25 07:43 05/01/25 07:44 0.9 % Sodium Chloride 50 Ml Vial IV 05/01/25 07:44 50 ml ONCE ONE Administration ORDERS Category Date Time Status CT angio chest - dissection Stat Cat Scan 05/01/25 07:16 Completed CBC w/Auto Diff [Complete Blood Count Auto Diff] Stat Lab 05/01/25 07:19 Completed CMP [Comprehensive Metabolic Panel] Stat Lab 05/01/25 07:19 Completed Free T4 (Free Thyroxine) Stat Lab 05/01/25 07:19 Completed HIV Combo Stat Lab 05/01/25 07:19 Completed Hepatitis C Ab Qual. W/ RFX Stat Lab 05/01/25 07:19 Completed Lipase Stat Lab 05/01/25 07:19 Completed TSH [Thyroid Stimulating Hormone] Stat Lab 05/01/25 07:19 Completed Trop I [Troponin I] Stat Lab 05/01/25 07:19 Completed Troponin I Q3H Lab 05/01/25 10:55 Completed Troponin I Q3H Lab 05/01/25 13:30 Ordered ECG Data Tracing #1: ECG Narrative: Independently interpreted by me rate is 119, rhythm is regular, axis is normal, no ST elevation in anatomical contiguous leads, QTc 493 MDM Narrative Medical Decision Narrative: In summary patient is a 59-year-old female past medical history described above presents emergency department for evaluation of chest pain. Patient is hemodynamically stable nontoxic-appearing arrival, afebrile, sinus tachycardia on the monitor heart rate between 120 and 130. Spontaneous chest pain radiating to the back my concern for aortic dissection is high. Differential includes ACS, noncardiac chest pain, thyroid derangement, pulmonary embolism, among others. Workup will be conducted with hematologic labs, CTA chest dissection protocol, EKG, serial troponins. Initial inventions include morphine, Zofran, aspirin. Initial workup reviewed by me no significant leukocytosis no transfusable anemia no CANDELARIO or critical electrolyte abnormality initial troponin undetectably low, serial troponins undetectably low, lipase normal, no evidence of decompensated thyroid. CTA chest no acute abnormality. I discussed case with Dr. Harmon regarding management given that she has ongoing chest pain patient requires admission for continued evaluation at this time. Case was discussed with hospital medicine regarding management they will meet the patient their service for continued evaluation at this time.
--- OUTSIDE RECORDS SUMMARY | 2025-05-01 07:21 | XMS_ITS | Patient Health Record ---
Author Organization [facility] Address [address] [facility] [facility] [facility] [address] [place] [address] Care Team Providers Care Worldwide Chief Creative Officer Name Role Phone Angela [facility] [phone] Allergies No Known Allergies Reason For Referral [...] Status Risk Notes Problem Gynecological examination abnormal ([id number]) *Bookmaker Map exam with abnormal finding (Code also - abnormal finding(s) (Z01.411) 2018 Active confirmed Annual with abnormal findings Problem Abnormal cervical Papanicolaou smear with positive human papillomavirus deoxyribonucleic acid test (761651210) *Cervical low risk human papillomavirus (HPV) DNA test positive (Code also - for assoc. HPV (B97.7) (R87.820) 2017 Active confirmed Cervical low risk human papillomavirus (HPV) DNA test positive Plan Of Treatment No Information Insurance Providers Payer Name Payer Address Payer Phone Subscriber Number Group Number Insured Name Patient Relationship to Insured Coverage Start Date Coverage End Date Florian PPO [address] [place] [address] [id number] Tierra Ponce Self - patient is the insured Medical (General) History Medical History History ICD Code Anxiety Migraine headaches Kidney stones Endometriosis Surgical History Surgery Date(Month/Year) Dx Laparoscopy 2004, Kidney stone 2013 Oral surgery
--- OUTSIDE RECORDS SUMMARY | 2025-05-01 07:21 | XMS_ITS | Clinical Summary ---
Author Organization Healthcare Address [address] [place] [address] Care Team Providers Care Wood Ski Maker Name Role Phone Unavailable Primary Care Provider [...] UKY-Cervical Cancer Screening 01/04/2021 UKY-HPV/Cotest 01/04/2021 01/05/2016 [id number] Vaccine (1 - season) 2025 UKY-Influenza Vaccine [...] Narrative SUNQUEST - 01/13/2016 11:22 AM EDT [facility] MR #: [id number] [facility] [address] [place], [place] [address] 1965 (Age: 50) FW Collect Date: 01/05/2016 00:00 Receipt Date: 01/06/2016 12:08 Page 1 DEPARTMENT OF PATHOLOGY AND LABORATORY MEDICINE CYTOPATHOLOGY REPORT Email: [email or web address] ATTENDING MD/Practitioner: Lupillo Villarreal APRN Service: [facility] Location: [facility] Reported: 01/13/2016 11:22 Collected: 01/05/2016 00:00 INTERPRETATION A. THIN PREP (CERVICAL/VAGINAL): NEGATIVE FOR INTRAEPITHELIAL LESION OR MALIGNANCY. SHIFT IN ALEX SUGGESTIVE OF BACTERIAL VAGINOSIS. SATISFACTORY FOR EVALUATION; ENDOCERVICAL/TRANSFORMATION ZONE COMPONENT ABSENT/INSUFFICIENT. Slide scanned and imaged by [employer] ThinPrep Imaging System with manual review of [...] results is suggested (please call Microbiology at [phone] for results). CLINICAL INFORMATION: Menstrual History: Acyclic Date of Last Menstrual Period: Unknown Contraceptive History: Intrauterine device Other Clinical Conditions: Other AGENCY RECRUITER symptoms: Low abd pain If ASCUS and > 24 years of age, HPV/DNA testing requested. SPECIMEN DESCRIPTION: A: THIN PREP (CERVICAL/VAGINAL) THIN PREP PROCESS CELLULAR ENHANCEMENT ICD: F: A; DX IMAGE [id number] SNOMED CODES: A; D4K551 [id number] M-85465 E1002 M-[id number] M-[id number] In cases where a pathologist has signed out the report, the service has been rendered in part by a resident. The signing pathologist has performed and is responsible for the reported pathologic evaluation. us Rossana Villarreal APRN LAB PATHOLOGY ORDERABLES Fi nal Result SUN[employer]N from Last 3 Months or Most Recently Relevant to Health Maintenance
--- OUTSIDE RECORDS SUMMARY | 2025-05-01 07:21 | XMS_ITS | Clinical Summary ---
[facility] Address [address] [place] [address] Care Team Providers Care Pressure Steamer Tender Name Role Phone Giselle Harris APRN Primary [...] ZOSTER VACCINE (2 of 2) 10/04/2021 08/09/2021 INFLUENZA VACCINE 01/22/2025 03/26/2023, , 03/30/2014 TDAP/TD VACCINES (3 - Td or Tdap) 11/21/2027 018, 04/02/2017 Insurance Care Teams Pressure Steamer Tender Relationship Specialty Start Date End Date Giselle Harris APRN [address] [address] PCP - General Nurse Practitioner 03/26/23
[2025-05-01 07:36] LABS: Hematocrit 49.2 % (37.0-47.0); Hemoglobin 16.4 g/dL (12.2-16.2); Immature Granulocytes % 0.2 %; Mean Corpuscular HGB Conc 33.3 g/dL (31.8-35.4); Mean Corpuscular Hemoglobin 29.5 pg (27.0-31.2); Mean Corpuscular Volume 88.5 fl (81-99); Nucleated Red Blood Cells % 0 %; Platelet Count 269 K/mm3 (142-424); Red Blood Count 5.56 M/mm3 (4.20-5.40); Red Cell Distribution Width-SD 44.4 fL; White Blood Count 8.9 K/mm3 (4.8-10.8)
[2025-05-01] MEDS: SODIUM CHLORIDE 0.9% 10ML SYR (RAD ONLY) 10 ML IV (07:44)
[2025-05-01] MEDS: IOPAMIDOL-370 (76%);100ML BOTTLE 80 ML IV (07:44)
[2025-05-01] MEDS: 0.9 % SODIUM CHLORIDE 50 ML VIAL IV (07:44)
[2025-05-01] MEDS: ASPIRIN 81MG CHEWABLE TABLET 324 MG PO (07:48)
[2025-05-01 07:53] LABS: Alanine Aminotransferase 19 U/L (12-78); Albumin Level 4.4 g/dl (3.5-5.0); Albumin/Globulin Ratio 1.3 (1.1-1.8); Alkaline Phosphatase 77 U/L (38-126); Anion Gap 9.4 mEq/L (5-15); Aspartate Amino Transferase 21 U/L (14-36); Bilirubin,Total 0.8 mg/dl (0.2-1.3); Blood Urea Nitrogen 19 mg/dl (7-17); Calcium 9.9 mg/dl (8.4-10.2); Carbon Dioxide 32 mmol/L (22.0-30.0); Chloride 98 mmol/L (98-107); Creatinine Clearance Estimated 124 mL/min (50-200); Creatinine,Serum 0.80 mg/dl (0.52-1.04); Estimated Glomerular Filt Rate 74 ml/min (>60); GFR (African American) 89 ML/MIN (>60); Globulin 3.4 g/dL (1.3-3.2); Glucose 142 mg/dl (74-100); Lipase 116 U/L (23-300); Potassium 3.4 mmoL/L (3.5-5.1); Sodium 136 mmol/L (136-145); Total Protein,Serum 7.8 g/dl (6.3-8.2)
[2025-05-01] MEDS: ONDANSETRON 4MG/2ML VIAL 4 MG IV (07:53)
[2025-05-01] MEDS: ACETAMINOPHEN 1,000MG/100ML VIAL 1000 MG IV (07:57)
[2025-05-01] MEDS: KETOROLAC 15MG/ML VIAL 15 MG IV (07:57)
[2025-05-01 08:10] LABS: Free T4 (Free Thyroxine) 1.30 ng/dl (0.78-2.19)
[2025-05-01 08:11] LABS: Troponin I < 0.01 ng/ml (0.00-0.034)
[2025-05-01 08:24] LABS: Thyroid Stimulating Hormone 1.21 uIU/mL (0.465-4.68)
[2025-05-01 08:42] LABS: Hepatitis C Ab Qual. W/ RFX NEGATIVE (Negative)
--- NOTE | 2025-05-01 09:53 | PC.NURSE ---
I rounded on the pt. She ambulated to the bathroom in no apparent distress. no new complaints. call garcia in reach.
[2025-05-01 11:37] LABS: Troponin I < 0.01 ng/ml (0.00-0.034)
--- NOTE | 2025-05-01 12:58 | PC.NURSE ---
HS notified of pt needing a bed for admission.
--- NOTE | 2025-05-01 13:17 | HMH.PHAINT1 ---
Pharmacy Intervention Comments: MEDICATION RECONCILIATION COMPLETED ON PATIENT USING EXTERNAL FILL HISTORY FROM PHARMACY. -NESTOR FERNANDES, ALEXANDRAD
--- NOTE | 2025-05-01 13:24 | PC.NURSE ---
report called to jessica on second floor
--- NOTE | 2025-05-01 13:52 | P.HP_ITS ---
History of Present Illness *Admission Date: 05/01/25 *Reason for visit:: Chest pain *History of present illness: Tierra Ponce is a 59-year-old female with a medical history significant for current smoker, hypertension who presented with 1 week onset of progressive chest pain. Patient states chest pain is throughout her chest, aching, with radiation to her back. Denies radiation to her left arm or left jaw. Not related to exertion, denies fever/chills, shortness of breath, changes in cough. No recent significant lifestyle stressors. She states she took Tums at home without alleviation, and took a gulp of Coke which apparently helped a little. Today's episode was the worst so she proceeded to the ER. Workup in the ED significant for hemoglobin 16.4, troponins normal, EKG without acute ischemic changes, CTA chest without acute findings. She was given aspirin 324 mg, morph ine 4 mg, Toradol, Tylenol. Case was discussed with Dr. Reid who recommended admission and monitoring. Therefore I decided to admit patient for further evaluation and management. [facility] Disclaimer: The information contained in this section may have been updated after the patient was seen, as this information can be updated by other users. Medical History Seasonal allergies Migraine Miscarriage Pt reported multiple Anxiety Endometriosis Ectopic Hypertension Surgical History History of knee surgery History of ureteroscopy History of laparoscopy History of tubal ligation Family History Mother Hypertension Brain aneurysm Social History Smoking Status: Current every day smoker tobacco type: cigarettes how long ago did patient quit smoking: smokes half pack daily alcohol intake: never substance use type: denies use current occupational status: retired Travel in the last 8 weeks?: None Have you lived/traveled outside US in past 30 days?: No Contact w/someone who lives/traveled outside US past 30 days?: No Exposure to someone with infectious disease in past 14 days?: No Do you have a fever (greater than 100.4 F or 38 C)?: No Have you tested positive for COVID-19?: No Exposed to someone with COVID-19 in past 14 days?: No Do you have a sore throat?: No Do you have a cough?: No Do you have any weakness?: No Do you have any diarrhea?: No Are you experiencing any unusual bleeding?: No Do you have any muscle aches/pain?: No Do you have any abdominal pain?: No Are you experiencing loss of taste or smell?: No Other Medical History Have you received the Pneumonia Vaccine: No Meds Home Medications and Allergies Home Medications ?Medication ?Instructions ?Recorded ?Confirmed ?Type naproxen sodium 220 mg capsule 220 mg PO BIDP PRN Head ache 10/21/24 05/01/25 History (Aleve) albuterol sulfate 90 mcg/actuation 2 puff inhalation Q 4HP PRN 05/01/25 05/01/25 History aerosol inhaler shortness of breath or wheez ing irbesartan 150 1 tab PO DAILY 05/01/2502/15 History mg-hydrochlorothiazide 12.5 mg tablet New Prescriptions to Start Prescriptions: Allergies Allergy/AdvReac Type Severity Reaction Status Date / Time No Known Allergies Allergy Verified 04/19/25 11:19 Exam Data for Last 24 hours Vital signs and Labs for Last 24 Hours: Temp Pulse Resp BP Pulse Ox O2 Del Method O2 Flow Rate 98.3 F 78 14 117/60 93 L Nasal Cannula 2 05/01/25 07:15 05/01/25 13:00 05/01/25 13:00 05/01/25 13:00 05/01/25 13:00 05/01/25 13:00 05/01/25 13:00 Laboratory Results - last 24 hr 05/01/25 07:19: WBC 8.9, RBC 5.56 H, Hgb 16.4 H, Hct 49.2 H, MCV 88.5, MCH 29.5, MCHC 33.3, RDW 13.7, Plt Count 269, MPV 10.8 H, Neut % (Auto) 56.4, Lymph % (Auto) 31.0, [place] % (Auto) 7.6, Eos % (Auto) 3.7, Baso % (Auto) 1.1, Neut # (Auto) 5.0, Lymph # (Auto) 2.8, [place] # (Auto) 0.7, Eos # (Auto) 0.3, Baso # (Auto) 0.1, Sodium 136, Potassium 3.4 L, Chloride 98, Carbon Dioxide 32 H, Anion Gap 9.4, BUN 19 H, Creatinine 0.80, Estimated Creat Clear 124, Estimated GFR 74, Est GFR ( Amer) 89, Glucose 142 H, Calcium 9.9, Total Bilirubin 0.8, AST 21, ALT 19, Alkaline Phosphatase 77, Troponin I < 0.01, Total Protein 7.8, Albumin 4.4, Globulin 3.4 H, Albumin/Globulin Ratio 1.3, Lipase 116, TSH 1.21, Free T4 1.30, HCV Ab TEE w/Rflx PCR Qn Negative, HIV Ag/Ab Combo Qual Negative 05/01/25 10:55: Troponin I < 0.01 I & O for Last 24 hours: Intake & Output 04/28/25 04/29/25 04/30/25 05/01/25 23:59 23:59 23:59 23:59 Weight 101.151 kg Constitutional Constitutional: no acute distress and obese *Routine HEENT Exam Head: Present normocephalic Eye: Present EOMI and PERRL ENT: Present mucous membranes moist *Routine Neck Exam Neck: Present supple; Absent lymphadenopathy *Routine Respiratory Exam Respiratory: Present CTA bilaterally *Routine Cardiovascular Exam Cardiovascular: Present RRR *Routine Abdominal Exam Abdominal: Present soft and normoactive bowel sounds; Absent tenderness *Routine Rectal Exam Rectal:: deferred *Routine Genitalia Exam Genitalia:: deferred *Routine Extremities Exam Extremities: Absent cyanosis, clubbing or edema *Routine Skin Exam Skin: Present warm; Absent rash *Routine Neurological Exam Neurological: Present alert and oriented X3 Assessment and Plan *Assessment and plan (1) Chest pain: Status: Acute Category: Medical Code(s): R07.9 - Chest pain, unspecified Plan Tierra Ponce is a 59-year-old female with a medical history significant for current smoker, hypertension who presented with 1 week onset of progressive chest pain. Patient states chest pain is throughout her chest, aching, with radiation to her back. Denies radiation to her left arm or left jaw. Not related to exertion, denies fever/chills, shortness of breath, changes in cough. No recent significant lifestyle stressors. She states she took Tums at home without alleviation, and took a gulp of Coke which apparently helped a little. Today's episode was the worst so she proceeded to the ER. Workup in the ED significant for hemoglobin 16.4, troponins normal, EKG did show T wave inversions in the anterior leads., CTA chest without acute findings. She was given aspirin 324 mg, morphine 4 mg, Toradol, Tylenol. Case was discussed with Dr. Reid who recommended admission and monitoring. Therefore I decided to admit patient for further evaluation and management. #Chest pain #Current smoker #Suspected GERD ? Presented with 1 week onset of generalized chest pain radiation to the back. Troponins normal, EKG does show T wave inversions anterior leads. CTA chest without acute findings. ? Patient is a chronic smoker which is a risk factor. ? Will monitor patient overnight for chest pain, and if stable will discharge with close follow-up with cardiology. ? Started aspirin 81 mg, Protonix 40 mg. ? Follow-up A1c, TSH, lipid panel. ? Continuous cardiac telemetry. ? Follow-up ECHO patient is to a Saturday. ? Nicotine patch as needed. #Hypertension ? Hold home BP meds as BP soft at this time. Full code DVT prophylaxis: Lovenox 40 mg Home medications: Holding BP meds as above.
[2025-05-01 15:31] LABS: Troponin I < 0.01 ng/ml (0.00-0.034)
[2025-05-01] MEDS: LACTATED RINGERS 1000ML 500 ML IV (18:38)
[2025-05-01] MEDS: PANTOPRAZOLE 40MG TABLET 40 MG PO (20:17)
[2025-05-02] VITALS: BP 108/73; PULSE 80; RESP 16; TEMP 36.7; O2SAT 91
--- NOTE | 2025-05-02 03:46 | PC.NURSE ---
Alert and oriented. No complaints from patient this shift. Independent in room. Call light in reach.
[2025-05-02 04:00] VITALS: BP 100/62; PULSE 80; RESP 14; TEMP 36.8; O2SAT 91; BMI 37.0
[2025-05-02 06:49] LABS: Hematocrit 43.8 % (37.0-47.0); Immature Granulocytes % 0.3 %; Mean Corpuscular HGB Conc 33.1 g/dL (31.8-35.4); Mean Corpuscular Hemoglobin 29.5 pg (27.0-31.2); Mean Corpuscular Volume 89.0 fl (81-99); Nucleated Red Blood Cells % 0 %; Platelet Count 226 K/mm3 (142-424); Red Blood Count 4.92 M/mm3 (4.20-5.40); Red Cell Distribution Width-SD 44.9 fL; White Blood Count 7.9 K/mm3 (4.8-10.8)
[2025-05-02 07:00] LABS: Alanine Aminotransferase 14 U/L (12-78); Albumin Level 3.7 g/dl (3.5-5.0); Albumin/Globulin Ratio 1.3 (1.1-1.8); Alkaline Phosphatase 69 U/L (38-126); Anion Gap 6.7 mEq/L (5-15); Aspartate Amino Transferase 25 U/L (14-36); Bilirubin,Total 0.5 mg/dl (0.2-1.3); Blood Urea Nitrogen 18 mg/dl (7-17); Calcium 8.9 mg/dl (8.4-10.2); Carbon Dioxide 29 mmol/L (22.0-30.0); Chloride 102 mmol/L (98-107); Cholesterol 166 mg/dl (140-200); Creatinine Clearance Estimated 146 mL/min (50-200); Creatinine,Serum 0.70 mg/dl (0.52-1.04); Estimated Glomerular Filt Rate 86 ml/min (>60); GFR (African American) 104 ML/MIN (>60); Globulin 2.9 g/dL (1.3-3.2); Glucose 113 mg/dl (74-100); HDL Cholesterol 36 mg/dl (40-60); Magnesium 1.6 mg/dl (1.6-2.3); Potassium 3.7 mmoL/L (3.5-5.1); Sodium 134 mmol/L (136-145); Total Protein,Serum 6.6 g/dl (6.3-8.2); Triglycerides 105 mg/dl (30-150)
[2025-05-02 07:48] LABS: Hemoglobin 14.5 g/dL (12.2-16.2)
[2025-05-02 08:00] VITALS: BP 127/66; PULSE 80; PULSE 84; RESP 14; TEMP 36.8; O2SAT 92
[2025-05-02] MEDS: ASPIRIN EC 81MG TABLET 81 MG PO (08:22)
[2025-05-02 09:04] LABS: Hemoglobin A1C 6.2 % (4.0-6.0)
--- NOTE | 2025-05-02 11:44 | P.DS_ITS ---
General Admission date:: 05/01/25 HPI HPI HPI: Tierra Ponce is a 59-year-old female with a medical history significant for current smoker, hypertension who presented with 1 week onset of progressive chest pain. Patient states chest pain is throughout her chest, aching, with radiation to her back. Denies radiation to her left arm or left jaw. Not related to exertion, denies fever/chills, shortness of breath, changes in cough. No recent significant lifestyle stressors. She states she took Tums at home without alleviation, and took a gulp of Coke which apparently helped a little. Today's episode was the worst so she proceeded to the ER. Workup in the ED significant for hemoglobin 16.4, troponins normal, EKG without acute ischemic changes, CTA chest without acute findings. She was given aspirin 324 mg, morphine 4 mg, Toradol, Tylenol. Case was discussed with Dr. Reid who recommended admission and monitoring. Therefore I decided to admit patient for further evaluation and management. Hospital Course Hospital Course Hospital Course: Tierra Ponce is a 59-year-old female with a medical history significant for current smoker, hypertension who presented with 1 week onset of progressive chest pain. Patient states chest pain is throughout her chest, aching, with radiation to her back. Denies radiation to her left arm or left jaw. Not related to exertion, denies fever/chills, shortness of breath, changes in cough. No recent significant lifestyle stressors. She states she took Tums at home without alleviation, and took a gulp of Coke which apparently helped a little. Today's episode was the worst so she proceeded to the ER. Workup in the ED significant for hemoglobin 16.4, troponins normal, EKG did show T wave inversions in the anterior leads., CTA chest without acute findings. She was given aspirin 324 mg, morphine 4 mg, Toradol, Tylenol. Case was discussed with Dr. Reid who recommended admission and monitoring. Therefore I decided to admit patient for further evaluation and management. #Chest pain #Current smoker #Suspected GERD ? Presented with 1 week onset of generalized chest pain radiation to the back. Troponins normal, EKG does show T wave inversions anterior leads. CTA chest without acute findings. ? Patient is a chronic smoker which is a risk factor. A1c 6.2%, LDL 104, TSH normal. ? Monitored overnight, patient states she had midsternal heartburn after drinking soda this morning which resolved within a few minutes. Otherwise no other symptoms. ? Given patient stability, normal troponins and vitals it is reasonable for patient to follow-up with cardiology within this next week. Patient agreeable to do so. ? Advised smoking cessation. ? Started aspirin 81 mg, Protonix 40 mg. Advised to take Tylenol instead of naproxen for headaches. ? Will follow-up with cardiology early next week. #Hypertension ? Hold home irbesartan, hydrochlorothiazide due to normal/soft pressures at this time. Exam Data for Last 24 hours Vital signs and Labs for Last 24 Hours: Temp Pulse Resp BP Pulse Ox O2 Del Method O2 Flow Rate 98.2 F 84 14 127/66 92 L Room Air 2 05/02/25 08:00 05/02/25 08:00 05/02/25 08:00 05/02/25 08:00 05/02/25 08:00 05/02/25 08:24 05/01/25 14:18 Laboratory Results - last 24 hr 05/01/25 14:56: Troponin I < 0.01 05/02/25 06:13: WBC 7.9, RBC 4.92, Hgb 14.5 D, Hct 43.8, MCV 89.0, MCH 29.5, MCHC 33.1, RDW 13.8, Plt Count 226, MPV 10.8 H, Neut % (Auto) 60.5, Lymph % (Auto) 27.0, [place] % (Auto) 8.3, Eos % (Auto) 3.0, Baso % (Auto) 0.9, Neut # (Auto) 4.8, Lymph # (Auto) 2.1, [place] # (Auto) 0.7, Eos # (Auto) 0.2, Baso # (Auto) 0.1, Sodium 134 L, Potassium 3.7, Chloride 102, Carbon Dioxide 29, Anion Gap 6.7, BUN 18 H, Creatinine 0.70, Estimated Creat Clear 146, Estimated GFR 86, Est GFR ( Amer) 104, Glucose 113 H D, Hemoglobin A1c 6.2 H, Calcium 8.9, Magnesium 1.6, Total Bilirubin 0.5, AST 25, ALT 14 D, Alkaline Phosphatase 69, Total Protein 6.6, Albumin 3.7 D, Globulin 2.9, Albumin/Globulin Ratio 1.3, Triglycerides 105, Cholesterol 166, LDL Cholesterol Direct 104.27, VLDL Cholesterol 21, HDL Cholesterol 36 L, Cholesterol/HDL Ratio 4.6 H I & O for Last 24 hours: Intake & Output 04/29/25 04/30/25 05/01/25 05/02/25 23:59 23:59 23:59 23:59 Intake Total 1000 / 1300 500 / 500 Output Total 0 / 0 0 / 0 Balance 1000 / 1300 500 / 500 Weight 102.058 kg 104.553 kg Constitutional Constitutional: no acute distress *Routine HEENT Exam Head: Present normocephalic Eye: Present EOMI and PERRL ENT: Present mucous membranes moist *Routine Neck Exam Neck: Present supple; Absent lymphadenopathy *Routine Respiratory Exam Respiratory: Present CTA bilaterally *Routine Cardiovascular Exam Cardiovascular: Present RRR *Routine Abdominal Exam Abdominal: Present soft and normoactive bowel sounds; Absent tenderness *Routine Extremities Exam Extremities: Absent cyanosis, clubbing or edema *Routine Skin Exam Skin: Present warm; Absent rash *Routine Neurological Exam Neurological: Present alert and oriented X3 Results Data Completed and Pending Labs on day of discharge: Labs from last 24 hours 05/02/25 05/01/25 06:13 14:56 WBC 7.9 RBC 4.92 Hgb 14.5 D Hct 43.8 MCV 89.0 MCH 29.5 MCHC 33.1 RDW 13.8 Plt Count 226 MPV 10.8 H Neut % (Auto) 60.5 Lymph % (Auto) 27.0 [place] % (Auto) 8.3 Eos % (Auto) 3.0 Baso % (Auto) 0.9 Neut # (Auto) 4.8 Lymph # (Auto) 2.1 [place] # (Auto) 0.7 Eos # (Auto) 0.2 Baso # (Auto) 0.1 Sodium 134 L Potassium 3.7 Chloride 102 Carbon Dioxide 29 Anion Gap 6.7 BUN 18 H Creatinine 0.70 Estimated Creat Clear 146 Estimated GFR 86 Est GFR ( Amer) 104 Glucose 113 H D Hemoglobin A1c 6.2 H Calcium 8.9 Magnesium 1.6 Total Bilirubin 0.5 AST 25 ALT 14 D Alkaline Phosphatase 69 Troponin I < 0.01 Total Protein 6.6 Albumin 3.7 D Globulin 2.9 Albumin/Globulin Ratio 1.3 Triglycerides 105 Cholesterol 166 LDL Cholesterol Direct 104.27 VLDL Cholesterol 21 HDL Cholesterol 36 L Cholesterol/HDL Ratio 4.6 H DS: Diagnosis Discharge Diagnosis (1) Chest pain: Status: Acute Code(s): R07.9 - Chest pain, unspecified Meds Home Medications and Allergies Home Medications ?Medication ?Instructions ?Recorded ?Confirmed ?Type albuterol sulfate 90 mcg/actuation 2 puff inhalation Q 4HP PRN 05/01/25 05/01/25 History aerosol inhaler shortness of breath or wheez ing irbesartan 150 1 tab PO DAILY 05/01/2502/15 History mg-hydrochlorothiazide 12.5 mg tablet Held on 05/02/25. Instructions: Resume on 05/16/25. Hold this medication as your blood pressures were stable during hospitalization. Discussed with PCP/cardiology about restarting it. aspirin 81 mg tablet,delayed 81 mg PO DAILY 30 days #3 0 tabs 05/02/25 Rx release pantoprazole 40 mg tablet,delayed 40 mg PO DAILY 30 da ys #30 tabs 05/02/25 Rx release New Prescriptions to Start Prescriptions: aspirin Sal Killian pantoprazole Sal Killian Allergies Allergy/AdvReac Type Severity Reaction Status Date / Time No Known Allergies Allergy Verified 04/19/25 11:19 Discharge Plan Disposition Patient Disposition: Home, Self-Care Condition: Fair Follow up Plan Follow up with: Josh Eason PA [Physician Admissions Rn, Cardiology] - 1 week Referral Note: office will call with follow up appointment Prescriptions/Medication Reconciliation: New aspirin 81 mg Tablet,Delayed Release (Dr/Ec) 81 mg PO DAILY 30 Days Qty: 30 0RF pantoprazole 40 mg Tablet,Delayed Release (Dr/Ec) 40 mg PO DAILY 30 Days Qty: 30 0RF Continued albuterol sulfate 90 mcg/actuation HFA aerosol inhaler 2 puff inhalation Q4HP PRN (Reason: shortness of breath or wheezing) Held irbesartan-hydrochlorothiazide 150-12.5 mg tablet 1 tab PO DAILY Hold Instructions: Resume on 05/16/25. Hold this medication as your blood pressures were stable during hospitalization. Discussed with PCP/cardiology about restarting it. Discontinued naproxen sodium [Aleve] 220 mg Capsule 220 mg PO BIDP PRN (Reason: Headache) Problem Reconciliation Problems Reviewed?: Yes Patient Discharge Instructions Additional Instructions: Consider discontinuing naproxen as this can cause acid reflux, inflammation of the stomach. Use Tylenol instead. Patient Instructions: DI for Chest Pain Print Language: Slovenian Providers Primary Care Provider: Corey Tsai Admit Provider: Sal Killian Attending Provider: Sal Killian
--- NOTE | 2025-05-03 11:48 | SW/DCPLANNER ---
Spoke with patient on the phone. Patient stated that she is doing well. Patient stated that she is aware of her upcoming appointment. Patient stated that she was able to get her new medicine picked up. Patient stated that she has no concerns or questions at this time. Dat [place]
== END 2025-05-02 12:55 | disposition home or self-care (01) ==
LOC: ER 08:07 → 2ND 13:05
PROVIDERS: Admitting Provider Student in an Organized Health Care Education/Training Program; Emergency Provider Emergency Medicine; PCP Internal Medicine; Visit Provider Student in an Organized Health Care Education/Training Program
DX: R07.9 Chest pain, unspecified (principal); I10 Essential (primary) hypertension; F17.210 Nicotine dependence, cigarettes, uncomplicated; E66.9 Obesity, unspecified; G43.909 Migraine, unspecified, not intractable, without status migrainosus; F41.9 Anxiety disorder, unspecified; Z68.37 Body mass index [BMI] 37.0-37.9, adult
CPT/HCPCS: 36415; 71275; 80053; 80061; 83036; 83690; 83735; 84439; 84443; 84484; 85025; 86803; 87389; 93005; 96361; 96372; 96374; 96375; 99285; G0378; J0131; J1650; J1885; J2405; J7120; Q9967

== ENCOUNTER 2025-05-04 17:04 | Outpatient (CLI) | payer BC, SELFPAY ==
--- OUTSIDE RECORDS SUMMARY | 2025-05-04 17:06 | XMS_ITS | Clinical Summary ---
Author Organization Healthcare Address [address] [place] [address] Care Team Providers Care Conventional Underwriter Name Role Phone Unavailable Primary Care Provider [...] Date Last Done Comments UKY-Depression Screening 1965 UKY-Infant/Child/Adol SDOH Screenings 01/01/1968 UKY- SDOH Screenings 12/30/1985 [...] UKY-Cervical Cancer Screening 01/04/2021 UKY-HPV/Cotest 01/04/2021 01/05/2016 [id number] Vaccine (1 - season) 2025 UKY-Influenza Vaccine [...] Narrative SUNQUEST - 01/13/2016 11:22 AM EDT [facility] MR #: [id number] [facility] [address] [place], [place] [address] 1965 (Age: 50) FW Collect Date: 01/05/2016 00:00 Receipt Date: 01/06/2016 12:08 Page 1 DEPARTMENT OF PATHOLOGY AND LABORATORY MEDICINE CYTOPATHOLOGY REPORT Email: [email or web address] [id number] ATTENDING MD/Practitioner: Lupillo Villarreal APRN Service: [facility] Location: [facility] Reported: 01/13/2016 11:22 Collected: 01/05/2016 00:00 INTERPRETATION A. THIN PREP (CERVICAL/VAGINAL): NEGATIVE FOR INTRAEPITHELIAL LESION OR MALIGNANCY. SHIFT IN ALEX SUGGESTIVE OF BACTERIAL VAGINOSIS. SATISFACTORY FOR EVALUATION; ENDOCERVICAL/TRANSFORMATION ZONE COMPONENT ABSENT/INSUFFICIENT. Slide scanned and imaged by [id number] ThinPrep Imaging System with manual review of [...] results is suggested (please call Microbiology at [phone] for results). CLINICAL INFORMATION: Menstrual History: Acyclic Date of Last Menstrual Period: Unknown Contraceptive History: Intrauterine device Other Clinical Conditions: Other JIRA ADMINISTRATOR symptoms: Low abd pain If ASCUS and > 24 years of age, HPV/DNA testing requested. SPECIMEN DESCRIPTION: A: THIN PREP (CERVICAL/VAGINAL) THIN PREP PROCESS CELLULAR ENHANCEMENT ICD: F: A; DX IMAGE [id number] SNOMED CODES: A; V1Y912 [id number] M-11608 E1002 M-85651 M-10695 In cases where a pathologist has signed out the report, the service has been rendered in part by a resident. The signing pathologist has performed and is responsible for the reported pathologic evaluation. us Rossana Villarreal APRN LAB PATHOLOGY ORDERABLES Fi nal Result [employer] from Last 3 Months or Most Recently Relevant to Health Maintenance
--- OUTSIDE RECORDS SUMMARY | 2025-05-04 17:06 | XMS_ITS | Clinical Summary ---
[facility] Address [address] [place] [address] Care Team Providers Care Criminal Justice Instructor Name Role Phone Giselle Harris APRN [...] Tdap) 11/21/2027 018, 04/02/2017 Insurance Care Teams Criminal Justice Instructor Relationship Specialty Start Date End Date Giselle Harris APRN [address] [address] PCP - General Nurse Practitioner 03/26/23
== END 2025-05-04 23:59 | disposition home or self-care (01) ==
LOC: LAB.DROPOF 17:04
PROVIDERS: PCP Internal Medicine; Visit Provider Internal Medicine
DX: N39.0 Urinary tract infection, site not specified (principal)
CPT/HCPCS: 87086

== ENCOUNTER 2025-05-13 07:45 | Outpatient (CLI) | payer BC, SELFPAY ==
--- OUTSIDE RECORDS SUMMARY | 2025-05-13 07:47 | XMS_ITS | Patient Health Record ---
Author Organization [facility] Address [address] [facility] [facility] [place] [address] Care Team Providers Care Manufacturing Weaver Name Role Phone Angela [facility] [phone] Allergies No Known Allergies Reason For Referral [...] Status Risk Notes Problem Gynecological examination abnormal ([id number]) *Bilingual Branch Manager exam with abnormal finding (Code also - abnormal finding(s) (Z01.411) 2018 Active confirmed Annual with abnormal findings Problem Abnormal cervical Papanicolaou smear with positive human papillomavirus deoxyribonucleic acid test (967541801) *Cervical low risk human papillomavirus (HPV) DNA test positive (Code also - for assoc. HPV (B97.7) (R87.820) 2017 Active confirmed Cervical low risk human papillomavirus (HPV) DNA test positive Plan Of Treatment No Information Insurance Providers Payer Name Payer Address Payer Phone Subscriber Number Group Number Insured Name Patient Relationship to Insured Coverage Start Date Coverage End Date [employer] PPO [address] [place] [address] [id number] [place] Self - patient is the insured Medical (General) History Medical History History ICD Code Anxiety Migraine headaches Kidney stones Endometriosis Surgical History Surgery Date(Month/Year) Oral surgery Dx Laparoscopy 2004, Kidney stone 2013
--- OUTSIDE RECORDS SUMMARY | 2025-05-13 07:48 | XMS_ITS | Clinical Summary ---
Author Organization [facility] Address [address] [place] [address] Care Team Providers Care Machine Brush Maker Name Role Phone Giselle Harris APRN Primary [...] Tdap) 11/21/2027 018, 04/02/2017 Insurance Care Teams Machine Brush Maker Relationship Specialty Start Date End Date Giselle Harris APRN [address] [address] PCP - General Nurse Practitioner 03/26/23
--- OUTSIDE RECORDS SUMMARY | 2025-05-13 07:48 | XMS_ITS | Clinical Summary ---
Author Organization [facility] Address [address] [place] [address] Care Team Providers Care Paper Baling Machine Operator Name Role Phone Unavailable Primary Care Provider [...] [facility]-Cervical Cancer Screening 01/04/2021 [facility]-HPV/Cotest 01/04/2021 01/05/2016 [id number] Vaccine (1 - season) 2025 [facility]-Influenza Vaccine [...] Narrative SUNQUEST - 01/13/2016 11:22 AM EDT [facility] MR #: [id number] [facility] [address] [place], [place] [address] 1965 (Age: 50) FW Collect Date: 01/05/2016 00:00 Receipt Date: 01/06/2016 12:08 Page 1 DEPARTMENT OF PATHOLOGY AND LABORATORY MEDICINE CYTOPATHOLOGY REPORT Email: [email or web address] ATTENDING MD/Practitioner: Lupillo Villarreal APRN Service: [facility] Location: [facility] Reported: 01/13/2016 11:22 Collected: 01/05/2016 00:00 INTERPRETATION A. THIN PREP (CERVICAL/VAGINAL): NEGATIVE FOR INTRAEPITHELIAL LESION OR MALIGNANCY. SHIFT IN ALEX SUGGESTIVE OF BACTERIAL VAGINOSIS. SATISFACTORY FOR EVALUATION; ENDOCERVICAL/TRANSFORMATION ZONE COMPONENT ABSENT/INSUFFICIENT. Slide scanned and imaged by [facility] ThinPrep Imaging System with manual review of [...] results is suggested (please call Microbiology at [phone] for results). CLINICAL INFORMATION: Menstrual History: Acyclic Date of Last Menstrual Period: Unknown Contraceptive History: Intrauterine device Other Clinical Conditions: Other IN HOME CAREGIVER symptoms: Low abd pain If ASCUS and > 24 years of age, HPV/DNA testing requested. SPECIMEN DESCRIPTION: A: THIN PREP (CERVICAL/VAGINAL) THIN PREP PROCESS CELLULAR ENHANCEMENT ICD: F: A; DX IMAGE 25579 SNOMED CODES: A; [id number] [id number] E1002 [id number] In cases where a pathologist has signed out the report, the service has been rendered in part by a resident. The signing pathologist has performed and is responsible for the reported pathologic evaluation. us Rossana Villarreal APRN LAB PATHOLOGY ORDERABLES Fi nal Result [employer] from Last 3 Months or Most Recently Relevant to Health Maintenance
--- NOTE | 2025-05-13 08:00 | CA_ITS ---
APPROVED REPORT EXAM: Comprehensive 2D, Doppler, and color-flow Echocardiogram Dishwasher: YOJANA Ann, RVS Ht: 5 ft 6 in Wt: 228lbs BSA: 2.11 BP: 134/74 mmHg Indications: CP, SOB, Smoker 2D Dimensions Left Atrium 3.21 cm F: 2.7 - 3.8 LA Volume 58.60 mL LA Volume Index 27.633702 mL/m2 (M/F) 16-34 EF AP4 52.00 % GL Strain -16.5 % M-Mode Dimensions RVDd 1.90 cm (0.9-2.6) LA Diam 3.77 cm (1.9-4.0) LVDd 5.65 cm (3.5-5.7) LVDs 3.47 cm (3.5-5.7) IVSd 0.75 cm (0.6-1.1) PWd 0.75 cm (0.6-1.1) EF (Teich) 68.20% EPSs 1.11 cm FS 38.60% EDV (Teich) 156.80 mL TAPSE 2.29 (<1.7) ESV (Teich) 49.80 mL LV Diastology E Decel Time 203 (160-240 msec) E/A Ratio 0.76 MED A' 12.60 cm/s LAT A' 10.70 cm/s Aortic Valve HAKEEM Index 1.01 cm2/m2 AoV Peak Jassi. 119.0 (50-130 cm/s) AO Peak GR. 5.60 mmHg AO Mean GR. 2.80 (<5 mmHg) AO VTI 24.5 (18-25 cm) HAKEEM (VTI) 2.19 (2.5-4.5 cm2) Mitral Valve MV A Velocity 94.0 (40-130 cm/s) E/A Ratio 0.76 Left Ventricle The left ventricle is normal size. Left ventricular systolic function is low-normal. There is normal left ventricular wall thickness. There is normal LV segmental wall motion. The left ventricular diastolic function is normal. LVEF is 50% Right Ventricle The right ventricle is normal size. The right ventricular systolic function is normal. Atria The left atrium size is normal. The right atrium size is normal. There is no color Doppler evidence of interatrial shunt. Aortic Valve The aortic valve opens well. There is no hemodynamically significant aortic valvular stenosis. No aortic regurgitation is present. Mitral Valve The mitral valve is normal in structure. No evidence of mitral valve stenosis. Trace mitral regurgitation is present. Tricuspid Valve The tricuspid valve leaflets are thin and pliable. Trace tricuspid regurgitation. There is insufficient TR jet to estimate RVSP. Pulmonic Valve The pulmonary valve is grossly normal in structure. Trace pulmonic valve regurgitation is present. Great Vessels The aortic root is normal in size. IVC is normal in size and collapses >50% with inspiration. Pericardium There is no pericardial effusion. Other Information Study Quality: Fair Conclusion Low-normal LV systolic function. No significant valvular stenosis or regurgitation. Electronically signed by : Agustina Harmon MD 05/21/2025 16:42:48
== END 2025-05-13 23:59 | disposition home or self-care (01) ==
LOC: RT 07:45
PROVIDERS: PCP Internal Medicine; Visit Provider Physician Assistant
DX: R07.9 Chest pain, unspecified (principal); R06.02 Shortness of breath; F17.200 Nicotine dependence, unspecified, uncomplicated
CPT/HCPCS: 93306